=== PATIENT | male | born 1965 | race African-American/Black ===

== ENCOUNTER 2016-07-26 12:47 | Inpatient (IN) | payer OTHER ==
[2016-07-26 15:09] VITALS: BMI 23.7
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
[2016-07-26] MEDS ORDERED: NICOTINE POLACRILEX 4 MG GUM BC PRN (17:19)
[2016-07-26] MEDS ORDERED: hydrOXYzine PAMOATE 50 MG CAPSULE (FP) PO PRN (17:19)
[2016-07-26] MEDS ORDERED: MAGNESIUM CITRATE 300 ML BOTTLE PO PRN (17:19)
[2016-07-26] MEDS ORDERED: MAGNESIUM HYDROX 2400MG/30ML ORAL SUSPENSION 30 ML CUP PO PRN (17:19)
[2016-07-26] MEDS ORDERED: LOPERAMIDE HCL 2 MG CAPSULE PO PRN (17:19)
[2016-07-26] MEDS ORDERED: PNEUMOC 13-VAL CONJ-DIP CRM/PF 0.5 ML DISP.SYRIN IM ONE (20:30)
[2016-07-26] MEDS: GABAPENTIN 300 MG CAPSULE (FP) PO SCH (22:43)
[2016-07-26] MEDS: CYCLOBENZAPRINE HCL 10 MG TABLET (FP) PO SCH (22:43)
[2016-07-26] MEDS: THIAMINE HCL 100 MG TABLET (FP) PO SCH (22:44)
[2016-07-26] MEDS: RANITIDINE HCL 150 MG TABLET (FP) PO SCH (22:44)
[2016-07-26 23:20] LABS: URINE APPEARANCE CLEAR; URINE BILIRUBIN NEGATIVE (NEGATIVE); URINE BLOOD NEGATIVE (NEGATIVE); URINE COLOR STRAW; URINE GLUCOSE (UA) NEGATIVE (NEGATIVE); URINE KETONE NEGATIVE (NEGATIVE); URINE LEUK ESTERASE NEGATIVE (NEGATIVE); URINE NITRITE NEGATIVE (NEGATIVE); URINE PROTEIN NEGATIVE (NEGATIVE); URINE UROBILINOGEN NEGATIVE E.U./dl (0.2-1.0)
[2016-07-27] MEDS: GABAPENTIN 300 MG CAPSULE (FP) PO SCH ×3 (06:38→21:21)
[2016-07-27] MEDS ORDERED: PNEUMOC 13-VAL CONJ-DIP CRM/PF 0.5 ML DISP.SYRIN IM ONE (10:00)
[2016-07-27 10:09] LABS: MCH 30.4 pg (25.7-33.7); MCHC 33.4 g/dl (32.0-35.9); MEAN CELL VOLUME 90.8 fl (80-96); MEAN PLT VOLUME 10.1 fl (7.5-11.1); PLATELET COUNT 169 K/MM3 (134-434); RDW 14.2 % (11.9-15.9); WHITE BLOOD COUNT 7.3 K/mm3 (4.0-10.0)
[2016-07-27] MEDS: NICOTINE 21 MG/24 HOURS TOPICAL PATCH TD SCH (10:11)
[2016-07-27] MEDS: PRENATAL VITAMINS W/ FOLIC ACID TABLET (FP) PO SCH (10:11)
[2016-07-27] MEDS: RANITIDINE HCL 150 MG TABLET (FP) PO SCH ×2 (10:11→21:21)
[2016-07-27 10:37] LABS: ALBUMIN 3.7 g/dl (3.4-5.0); ALK PHOS 75 U/L (45-117); ANION GAP 11 (8-16); BILIRUBIN,TOTAL 0.4 mg/dL (0.2-1.0); CALCIUM 8.6 mg/dL (8.5-10.1); CO2 23 mmol/L (21-32); COCKROFT - GAULT 93.23; CREATININE 1.1 mg/dL (0.7-1.3); GLUCOSE,RANDOM 92 mg/dL (74-106); SGOT/AST 51 U/L (15-37); SGPT/ALT 66 U/L (12-78); TOT PROT 6.5 g/dl (6.4-8.2)
[2016-07-27] MEDS ORDERED: PNEUMOCOCCAL 23 VACCINE 0.5 ML VIAL IM ONE (12:00)
[2016-07-27] MEDS: MAG HYDROX/AL HYDROX/SIMETH 30 ML UNIT-DOSE CUP PO PRN (13:32)
--- NOTE | 2016-07-27 16:11 | EKG ---
Test Reason : Blood Pressure : / mmHG Vent. Rate : 053 BPM Atrial Rate : 053 BPM P-R Int : 166 ms QRS Dur : 098 ms QT Int : 454 ms P-R-T Axes : 075 069 066 degrees QTc Int : 426 ms SINUS BRADYCARDIA INCOMPLETE RIGHT BUNDLE BRANCH BLOCK BORDERLINE ECG WHEN COMPARED WITH ECG OF 26-JUL-2016 20:17, ST NO LONGER DEPRESSED IN ANTERIOR LEADS NONSPECIFIC T WAVE ABNORMALITY NO LONGER EVIDENT IN ANTERIOR LEADS Confirmed by MURIEL GARCIA MD ([id number]) on 07/27/2016 4:11:39 PM Referred By: Confirmed By:MURIEL GARCIA MD
--- NOTE | 2016-07-27 16:16 | EKG ---
Test Reason : Blood Pressure : / mmHG Vent. Rate : 067 BPM Atrial Rate : 067 BPM P-R Int : 164 ms QRS Dur : 096 ms QT Int : 404 ms P-R-T Axes : 066 032 042 degrees QTc Int : 426 ms NORMAL SINUS RHYTHM INCOMPLETE RIGHT BUNDLE BRANCH BLOCK JUNCTIONAL ST DEPRESSION, PROBABLY NORMAL BORDERLINE ECG NO PREVIOUS ECGS AVAILABLE Confirmed by MURIEL GARCIA MD ([id number]) on 07/27/2016 4:15:37 PM Referred By: Confirmed By:MURIEL GARCIA MD
[2016-07-27] MEDS: CYCLOBENZAPRINE HCL 10 MG TABLET (FP) PO SCH (21:20)
[2016-07-27] MEDS: THIAMINE HCL 100 MG TABLET (FP) PO SCH (21:20)
[2016-07-28] MEDS: GABAPENTIN 300 MG CAPSULE (FP) PO SCH ×3 (06:22→21:01)
[2016-07-28] MEDS: ACETAMINOPHEN 325 MG TABLET (FP) PO PRN (06:22)
[2016-07-28] MEDS: PRENATAL VITAMINS W/ FOLIC ACID TABLET (FP) PO SCH (10:11)
[2016-07-28] MEDS: RANITIDINE HCL 150 MG TABLET (FP) PO SCH ×2 (10:11→21:00)
[2016-07-28] MEDS: NICOTINE 21 MG/24 HOURS TOPICAL PATCH TD SCH (10:11)
[2016-07-28] MEDS: THIAMINE HCL 100 MG TABLET (FP) PO SCH (21:00)
[2016-07-28] MEDS: CYCLOBENZAPRINE HCL 10 MG TABLET (FP) PO SCH (21:00)
[2016-07-29] MEDS: GABAPENTIN 300 MG CAPSULE (FP) PO SCH ×3 (06:19→21:31)
[2016-07-29] MEDS: ACETAMINOPHEN 325 MG TABLET (FP) PO PRN (06:19)
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
[2016-07-29] MEDS: PRENATAL VITAMINS W/ FOLIC ACID TABLET (FP) PO SCH (10:21)
[2016-07-29] MEDS: NICOTINE 21 MG/24 HOURS TOPICAL PATCH TD SCH (10:21)
[2016-07-29] MEDS: RANITIDINE HCL 150 MG TABLET (FP) PO SCH ×2 (10:21→21:32)
[2016-07-29] MEDS: THIAMINE HCL 100 MG TABLET (FP) PO SCH (21:31)
[2016-07-29] MEDS: METHYL SALICYLATE/MENTHOL OINT 30 GM TUBE TP SCH (21:31)
[2016-07-29] MEDS: CYCLOBENZAPRINE HCL 10 MG TABLET (FP) PO SCH (21:31)
[2016-07-29] MEDS: diphenhydrAMINE HCL 50 MG CAPSULE PO PRN (21:32)
[2016-07-30] MEDS: GABAPENTIN 300 MG CAPSULE (FP) PO SCH ×3 (06:10→21:19)
[2016-07-30] MEDS ORDERED: PT OWN MED DRAWER 7, Y5N ONE (09:07)
[2016-07-30] MEDS: PRENATAL VITAMINS W/ FOLIC ACID TABLET (FP) PO SCH (10:21)
[2016-07-30] MEDS: NICOTINE 21 MG/24 HOURS TOPICAL PATCH TD SCH (10:21)
[2016-07-30] MEDS: RANITIDINE HCL 150 MG TABLET (FP) PO SCH ×2 (10:21→21:18)
[2016-07-30] MEDS: METHYL SALICYLATE/MENTHOL OINT 30 GM TUBE TP SCH ×2 (10:21→21:20)
[2016-07-30] MEDS: CYCLOBENZAPRINE HCL 10 MG TABLET (FP) PO SCH (21:18)
[2016-07-30] MEDS: THIAMINE HCL 100 MG TABLET (FP) PO SCH (21:18)
[2016-07-31] MEDS: ACETAMINOPHEN 325 MG TABLET (FP) PO PRN (06:02)
[2016-07-31] MEDS: GABAPENTIN 300 MG CAPSULE (FP) PO SCH ×3 (06:03→21:07)
[2016-07-31] MEDS: NICOTINE 21 MG/24 HOURS TOPICAL PATCH TD SCH (10:05)
[2016-07-31] MEDS: RANITIDINE HCL 150 MG TABLET (FP) PO SCH ×2 (10:05→21:06)
[2016-07-31] MEDS: PRENATAL VITAMINS W/ FOLIC ACID TABLET (FP) PO SCH (10:05)
[2016-07-31] MEDS: METHYL SALICYLATE/MENTHOL OINT 30 GM TUBE TP SCH ×2 (10:06→21:07)
[2016-07-31] MEDS: CYCLOBENZAPRINE HCL 10 MG TABLET (FP) PO SCH (21:06)
[2016-07-31] MEDS: THIAMINE HCL 100 MG TABLET (FP) PO SCH (21:06)
[2016-07-31] MEDS: diphenhydrAMINE HCL 50 MG CAPSULE PO PRN (21:07)
[2016-07-31] MEDS ORDERED: PT OWN MED DRAWER 7, Y5N ONE (21:07)
[2016-08-01] MEDS: GABAPENTIN 300 MG CAPSULE (FP) PO SCH ×3 (06:09→21:13)
[2016-08-01] MEDS: NICOTINE 21 MG/24 HOURS TOPICAL PATCH TD SCH (10:06)
[2016-08-01] MEDS: METHYL SALICYLATE/MENTHOL OINT 30 GM TUBE TP SCH ×2 (10:06→22:48)
[2016-08-01] MEDS: RANITIDINE HCL 150 MG TABLET (FP) PO SCH ×2 (10:07→21:12)
[2016-08-01] MEDS: PRENATAL VITAMINS W/ FOLIC ACID TABLET (FP) PO SCH (10:07)
[2016-08-01] MEDS: CYCLOBENZAPRINE HCL 10 MG TABLET (FP) PO SCH (21:12)
[2016-08-01] MEDS: THIAMINE HCL 100 MG TABLET (FP) PO SCH (21:12)
[2016-08-02] MEDS: GABAPENTIN 300 MG CAPSULE (FP) PO SCH ×3 (06:44→21:03)
[2016-08-02] MEDS ORDERED: PT OWN MED DRAWER 7, Y5N ONE (08:51)
[2016-08-02] MEDS: NICOTINE 21 MG/24 HOURS TOPICAL PATCH TD SCH (10:30)
[2016-08-02] MEDS: RANITIDINE HCL 150 MG TABLET (FP) PO SCH ×2 (10:30→21:02)
[2016-08-02] MEDS: PRENATAL VITAMINS W/ FOLIC ACID TABLET (FP) PO SCH (10:30)
[2016-08-02] MEDS: METHYL SALICYLATE/MENTHOL OINT 30 GM TUBE TP SCH ×2 (10:31→22:17)
[2016-08-02] MEDS: CYCLOBENZAPRINE HCL 10 MG TABLET (FP) PO SCH (21:02)
[2016-08-02] MEDS: THIAMINE HCL 100 MG TABLET (FP) PO SCH (21:02)
[2016-08-02] MEDS: diphenhydrAMINE HCL 50 MG CAPSULE PO PRN (21:03)
[2016-08-03] MEDS: GABAPENTIN 300 MG CAPSULE (FP) PO SCH ×3 (06:22→21:43)
[2016-08-03] MEDS: ACETAMINOPHEN 325 MG TABLET (FP) PO PRN (08:42)
[2016-08-03] MEDS: NICOTINE 21 MG/24 HOURS TOPICAL PATCH TD SCH (10:13)
[2016-08-03] MEDS: PRENATAL VITAMINS W/ FOLIC ACID TABLET (FP) PO SCH (10:13)
[2016-08-03] MEDS: RANITIDINE HCL 150 MG TABLET (FP) PO SCH ×2 (10:13→21:43)
[2016-08-03] MEDS: METHYL SALICYLATE/MENTHOL OINT 30 GM TUBE TP SCH ×2 (10:14→21:44)
[2016-08-03] MEDS: THIAMINE HCL 100 MG TABLET (FP) PO SCH (21:43)
[2016-08-03] MEDS: CYCLOBENZAPRINE HCL 10 MG TABLET (FP) PO SCH (21:43)
[2016-08-03] MEDS: diphenhydrAMINE HCL 50 MG CAPSULE PO PRN (21:44)
[2016-08-04] MEDS: GABAPENTIN 300 MG CAPSULE (FP) PO SCH ×3 (06:39→21:21)
[2016-08-04] MEDS: NICOTINE 21 MG/24 HOURS TOPICAL PATCH TD SCH (10:22)
[2016-08-04] MEDS: METHYL SALICYLATE/MENTHOL OINT 30 GM TUBE TP SCH ×2 (10:22→21:21)
[2016-08-04] MEDS: RANITIDINE HCL 150 MG TABLET (FP) PO SCH ×2 (10:22→21:21)
[2016-08-04] MEDS: PRENATAL VITAMINS W/ FOLIC ACID TABLET (FP) PO SCH (10:22)
[2016-08-04] MEDS: THIAMINE HCL 100 MG TABLET (FP) PO SCH (21:21)
[2016-08-04] MEDS: CYCLOBENZAPRINE HCL 10 MG TABLET (FP) PO SCH (21:21)
[2016-08-04] MEDS: diphenhydrAMINE HCL 50 MG CAPSULE PO PRN (21:21)
[2016-08-05] MEDS: GABAPENTIN 300 MG CAPSULE (FP) PO SCH ×3 (06:05→21:13)
[2016-08-05] MEDS: ACETAMINOPHEN 325 MG TABLET (FP) PO PRN (06:19)
[2016-08-05] MEDS: NICOTINE 21 MG/24 HOURS TOPICAL PATCH TD SCH (11:01)
[2016-08-05] MEDS: PRENATAL VITAMINS W/ FOLIC ACID TABLET (FP) PO SCH (11:01)
[2016-08-05] MEDS: METHYL SALICYLATE/MENTHOL OINT 30 GM TUBE TP SCH ×2 (11:02→21:14)
[2016-08-05] MEDS: RANITIDINE HCL 150 MG TABLET (FP) PO SCH ×2 (11:02→21:13)
[2016-08-05] MEDS ORDERED: PT OWN MED DRAWER 7, Y5N ONE ×2 (11:02→20:46)
[2016-08-05] MEDS: CYCLOBENZAPRINE HCL 10 MG TABLET (FP) PO SCH (21:13)
[2016-08-05] MEDS: THIAMINE HCL 100 MG TABLET (FP) PO SCH (21:13)
[2016-08-05] MEDS: diphenhydrAMINE HCL 50 MG CAPSULE PO PRN (21:14)
[2016-08-06] MEDS: GABAPENTIN 300 MG CAPSULE (FP) PO SCH ×3 (06:29→21:08)
[2016-08-06] MEDS: NICOTINE 21 MG/24 HOURS TOPICAL PATCH TD SCH (10:10)
[2016-08-06] MEDS: METHYL SALICYLATE/MENTHOL OINT 30 GM TUBE TP SCH ×2 (10:11→23:38)
[2016-08-06] MEDS: PRENATAL VITAMINS W/ FOLIC ACID TABLET (FP) PO SCH (10:11)
[2016-08-06] MEDS: RANITIDINE HCL 150 MG TABLET (FP) PO SCH ×2 (10:11→21:07)
[2016-08-06] MEDS: CYCLOBENZAPRINE HCL 10 MG TABLET (FP) PO SCH (21:07)
[2016-08-06] MEDS: THIAMINE HCL 100 MG TABLET (FP) PO SCH (21:07)
[2016-08-06] MEDS: diphenhydrAMINE HCL 50 MG CAPSULE PO PRN (21:08)
[2016-08-07] MEDS: GABAPENTIN 300 MG CAPSULE (FP) PO SCH ×3 (06:05→21:12)
[2016-08-07] MEDS: ACETAMINOPHEN 325 MG TABLET (FP) PO PRN ×2 (06:05→14:15)
[2016-08-07] MEDS: PRENATAL VITAMINS W/ FOLIC ACID TABLET (FP) PO SCH (10:24)
[2016-08-07] MEDS: RANITIDINE HCL 150 MG TABLET (FP) PO SCH ×2 (10:24→21:11)
[2016-08-07] MEDS: METHYL SALICYLATE/MENTHOL OINT 30 GM TUBE TP SCH ×2 (10:25→22:33)
[2016-08-07] MEDS: NICOTINE 21 MG/24 HOURS TOPICAL PATCH TD SCH (10:25)
[2016-08-07] MEDS: THIAMINE HCL 100 MG TABLET (FP) PO SCH (21:11)
[2016-08-07] MEDS: CYCLOBENZAPRINE HCL 10 MG TABLET (FP) PO SCH (21:11)
[2016-08-07] MEDS: diphenhydrAMINE HCL 50 MG CAPSULE PO PRN (21:13)
[2016-08-08] MEDS: GABAPENTIN 300 MG CAPSULE (FP) PO SCH ×3 (06:13→21:04)
[2016-08-08] MEDS: ACETAMINOPHEN 325 MG TABLET (FP) PO PRN (06:13)
[2016-08-08] MEDS: RANITIDINE HCL 150 MG TABLET (FP) PO SCH ×2 (10:18→21:04)
[2016-08-08] MEDS: PRENATAL VITAMINS W/ FOLIC ACID TABLET (FP) PO SCH (10:18)
[2016-08-08] MEDS: NICOTINE 21 MG/24 HOURS TOPICAL PATCH TD SCH (10:18)
[2016-08-08] MEDS: METHYL SALICYLATE/MENTHOL OINT 30 GM TUBE TP SCH ×2 (10:19→22:48)
[2016-08-08] MEDS: CYCLOBENZAPRINE HCL 10 MG TABLET (FP) PO SCH (21:04)
[2016-08-08] MEDS: diphenhydrAMINE HCL 50 MG CAPSULE PO PRN (21:04)
[2016-08-08] MEDS: THIAMINE HCL 100 MG TABLET (FP) PO SCH (21:04)
[2016-08-09] MEDS: GABAPENTIN 300 MG CAPSULE (FP) PO SCH ×3 (05:59→21:43)
[2016-08-09] MEDS: PRENATAL VITAMINS W/ FOLIC ACID TABLET (FP) PO SCH (10:15)
[2016-08-09] MEDS: RANITIDINE HCL 150 MG TABLET (FP) PO SCH ×2 (10:16→21:42)
[2016-08-09] MEDS: NICOTINE 21 MG/24 HOURS TOPICAL PATCH TD SCH (10:16)
[2016-08-09] MEDS: METHYL SALICYLATE/MENTHOL OINT 30 GM TUBE TP SCH ×2 (10:16→21:43)
[2016-08-09] MEDS ORDERED: PT OWN MED DRAWER 7, Y5N ONE ×3 (10:34→15:25)
[2016-08-09] MEDS: THIAMINE HCL 100 MG TABLET (FP) PO SCH (21:42)
[2016-08-09] MEDS: CYCLOBENZAPRINE HCL 10 MG TABLET (FP) PO SCH (21:43)
[2016-08-09] MEDS: diphenhydrAMINE HCL 50 MG CAPSULE PO PRN (21:43)
[2016-08-10] MEDS: GABAPENTIN 300 MG CAPSULE (FP) PO SCH ×3 (06:06→21:02)
[2016-08-10] MEDS ORDERED: PT OWN MED DRAWER 7, Y5N ONE (08:54)
[2016-08-10] MEDS: NICOTINE 21 MG/24 HOURS TOPICAL PATCH TD SCH (10:17)
[2016-08-10] MEDS: PRENATAL VITAMINS W/ FOLIC ACID TABLET (FP) PO SCH (10:17)
[2016-08-10] MEDS: RANITIDINE HCL 150 MG TABLET (FP) PO SCH ×2 (10:17→21:02)
[2016-08-10] MEDS: METHYL SALICYLATE/MENTHOL OINT 30 GM TUBE TP SCH ×2 (10:17→21:02)
[2016-08-10] MEDS: diphenhydrAMINE HCL 50 MG CAPSULE PO PRN (21:02)
[2016-08-10] MEDS: THIAMINE HCL 100 MG TABLET (FP) PO SCH (21:02)
[2016-08-10] MEDS: CYCLOBENZAPRINE HCL 10 MG TABLET (FP) PO SCH (21:02)
[2016-08-11] MEDS: ACETAMINOPHEN 325 MG TABLET (FP) PO PRN ×2 (06:18→10:55)
[2016-08-11] MEDS: GABAPENTIN 300 MG CAPSULE (FP) PO SCH ×3 (06:18→21:14)
[2016-08-11] MEDS ORDERED: PT OWN MED DRAWER 7, Y5N ONE (08:43)
[2016-08-11] MEDS: NICOTINE 21 MG/24 HOURS TOPICAL PATCH TD SCH (09:53)
[2016-08-11] MEDS: RANITIDINE HCL 150 MG TABLET (FP) PO SCH ×2 (09:53→21:14)
[2016-08-11] MEDS: PRENATAL VITAMINS W/ FOLIC ACID TABLET (FP) PO SCH (09:53)
[2016-08-11] MEDS: METHYL SALICYLATE/MENTHOL OINT 30 GM TUBE TP SCH ×2 (09:53→21:15)
[2016-08-11] MEDS ORDERED: IBUPROFEN 400 MG TABLET (FP) PO PRN (13:30)
[2016-08-11] MEDS: CYCLOBENZAPRINE HCL 10 MG TABLET (FP) PO SCH ×2 (14:55→21:14)
[2016-08-11] MEDS: LIDOCAINE 5% TOPICAL PATCH TP SCH (14:55)
[2016-08-11] MEDS: THIAMINE HCL 100 MG TABLET (FP) PO SCH (21:14)
[2016-08-11] MEDS: diphenhydrAMINE HCL 50 MG CAPSULE PO PRN (21:15)
[2016-08-12] MEDS: CYCLOBENZAPRINE HCL 10 MG TABLET (FP) PO SCH ×3 (06:06→21:27)
[2016-08-12] MEDS: GABAPENTIN 300 MG CAPSULE (FP) PO SCH ×3 (06:06→21:27)
[2016-08-12] MEDS: RANITIDINE HCL 150 MG TABLET (FP) PO SCH ×2 (10:15→21:27)
[2016-08-12] MEDS: PRENATAL VITAMINS W/ FOLIC ACID TABLET (FP) PO SCH (10:15)
[2016-08-12] MEDS: NICOTINE 21 MG/24 HOURS TOPICAL PATCH TD SCH (10:16)
[2016-08-12] MEDS: METHYL SALICYLATE/MENTHOL OINT 30 GM TUBE TP SCH ×2 (10:16→21:28)
[2016-08-12] MEDS ORDERED: PT OWN MED DRAWER 7, Y5N ONE (10:17)
[2016-08-12] MEDS: LIDOCAINE 5% TOPICAL PATCH TP SCH (10:17)
[2016-08-12] MEDS: diphenhydrAMINE HCL 50 MG CAPSULE PO PRN (21:27)
[2016-08-12] MEDS: THIAMINE HCL 100 MG TABLET (FP) PO SCH (21:27)
[2016-08-13] MEDS: GABAPENTIN 300 MG CAPSULE (FP) PO SCH ×3 (07:25→21:29)
[2016-08-13] MEDS: CYCLOBENZAPRINE HCL 10 MG TABLET (FP) PO SCH ×3 (07:25→21:29)
[2016-08-13] MEDS ORDERED: PT OWN MED DRAWER 7, Y5N ONE (08:55)
[2016-08-13] MEDS: RANITIDINE HCL 150 MG TABLET (FP) PO SCH ×2 (10:10→21:29)
[2016-08-13] MEDS: NICOTINE 21 MG/24 HOURS TOPICAL PATCH TD SCH (10:10)
[2016-08-13] MEDS: PRENATAL VITAMINS W/ FOLIC ACID TABLET (FP) PO SCH (10:10)
[2016-08-13] MEDS: LIDOCAINE 5% TOPICAL PATCH TP SCH (10:10)
[2016-08-13] MEDS: METHYL SALICYLATE/MENTHOL OINT 30 GM TUBE TP SCH ×2 (10:11→23:46)
[2016-08-13] MEDS: THIAMINE HCL 100 MG TABLET (FP) PO SCH (21:29)
[2016-08-13] MEDS: diphenhydrAMINE HCL 50 MG CAPSULE PO PRN (21:29)
[2016-08-14] MEDS: CYCLOBENZAPRINE HCL 10 MG TABLET (FP) PO SCH ×3 (06:03→21:22)
[2016-08-14] MEDS: GABAPENTIN 300 MG CAPSULE (FP) PO SCH ×3 (06:03→21:22)
[2016-08-14] MEDS ORDERED: PT OWN MED DRAWER 7, Y5N ONE (08:56)
[2016-08-14] MEDS: PRENATAL VITAMINS W/ FOLIC ACID TABLET (FP) PO SCH (10:01)
[2016-08-14] MEDS: RANITIDINE HCL 150 MG TABLET (FP) PO SCH ×2 (10:01→21:22)
[2016-08-14] MEDS: LIDOCAINE 5% TOPICAL PATCH TP SCH (10:02)
[2016-08-14] MEDS: METHYL SALICYLATE/MENTHOL OINT 30 GM TUBE TP SCH ×2 (10:03→21:23)
[2016-08-14] MEDS: NICOTINE 21 MG/24 HOURS TOPICAL PATCH TD SCH (10:03)
[2016-08-14] MEDS: MAG HYDROX/AL HYDROX/SIMETH 30 ML UNIT-DOSE CUP PO PRN (19:46)
[2016-08-14] MEDS: diphenhydrAMINE HCL 50 MG CAPSULE PO PRN (21:22)
[2016-08-14] MEDS: THIAMINE HCL 100 MG TABLET (FP) PO SCH (21:22)
[2016-08-15] MEDS: CYCLOBENZAPRINE HCL 10 MG TABLET (FP) PO SCH ×3 (06:05→21:38)
[2016-08-15] MEDS: GABAPENTIN 300 MG CAPSULE (FP) PO SCH ×3 (06:05→21:39)
[2016-08-15] MEDS: METHYL SALICYLATE/MENTHOL OINT 30 GM TUBE TP SCH ×2 (10:15→21:39)
[2016-08-15] MEDS: RANITIDINE HCL 150 MG TABLET (FP) PO SCH ×2 (10:15→21:38)
[2016-08-15] MEDS: PRENATAL VITAMINS W/ FOLIC ACID TABLET (FP) PO SCH (10:15)
[2016-08-15] MEDS: LIDOCAINE 5% TOPICAL PATCH TP SCH (10:15)
[2016-08-15] MEDS: NICOTINE 21 MG/24 HOURS TOPICAL PATCH TD SCH (10:15)
[2016-08-15] MEDS: MAG HYDROX/AL HYDROX/SIMETH 30 ML UNIT-DOSE CUP PO PRN (20:02)
[2016-08-15] MEDS: diphenhydrAMINE HCL 50 MG CAPSULE PO PRN (21:38)
[2016-08-15] MEDS: THIAMINE HCL 100 MG TABLET (FP) PO SCH (21:38)
[2016-08-16] MEDS: CYCLOBENZAPRINE HCL 10 MG TABLET (FP) PO SCH ×3 (06:18→21:16)
[2016-08-16] MEDS: GABAPENTIN 300 MG CAPSULE (FP) PO SCH ×3 (06:18→21:16)
[2016-08-16] MEDS: RANITIDINE HCL 150 MG TABLET (FP) PO SCH ×2 (10:03→21:16)
[2016-08-16] MEDS: PRENATAL VITAMINS W/ FOLIC ACID TABLET (FP) PO SCH (10:03)
[2016-08-16] MEDS: NICOTINE 21 MG/24 HOURS TOPICAL PATCH TD SCH (10:03)
[2016-08-16] MEDS: LIDOCAINE 5% TOPICAL PATCH TP SCH (10:54)
[2016-08-16] MEDS: METHYL SALICYLATE/MENTHOL OINT 30 GM TUBE TP SCH ×2 (10:54→21:17)
[2016-08-16] MEDS: THIAMINE HCL 100 MG TABLET (FP) PO SCH (21:16)
[2016-08-16] MEDS: diphenhydrAMINE HCL 50 MG CAPSULE PO PRN (21:16)
[2016-08-17] MEDS: CYCLOBENZAPRINE HCL 10 MG TABLET (FP) PO SCH ×3 (05:55→21:19)
[2016-08-17] MEDS: GABAPENTIN 300 MG CAPSULE (FP) PO SCH ×3 (05:55→21:19)
[2016-08-17] MEDS ORDERED: PT OWN MED DRAWER 7, Y5N ONE (08:35)
[2016-08-17] MEDS: RANITIDINE HCL 150 MG TABLET (FP) PO SCH ×2 (10:14→21:19)
[2016-08-17] MEDS: METHYL SALICYLATE/MENTHOL OINT 30 GM TUBE TP SCH ×2 (10:14→21:19)
[2016-08-17] MEDS: NICOTINE 21 MG/24 HOURS TOPICAL PATCH TD SCH (10:14)
[2016-08-17] MEDS: PRENATAL VITAMINS W/ FOLIC ACID TABLET (FP) PO SCH (10:14)
[2016-08-17] MEDS: LIDOCAINE 5% TOPICAL PATCH TP SCH (10:15)
[2016-08-17] MEDS: diphenhydrAMINE HCL 50 MG CAPSULE PO PRN (21:19)
[2016-08-17] MEDS: THIAMINE HCL 100 MG TABLET (FP) PO SCH (21:19)
[2016-08-18] MEDS: GABAPENTIN 300 MG CAPSULE (FP) PO SCH ×3 (06:04→21:25)
[2016-08-18] MEDS: CYCLOBENZAPRINE HCL 10 MG TABLET (FP) PO SCH ×3 (06:04→21:24)
[2016-08-18] MEDS: ACETAMINOPHEN 325 MG TABLET (FP) PO PRN (06:04)
[2016-08-18] MEDS ORDERED: PT OWN MED DRAWER 7, Y5N ONE (08:40)
[2016-08-18] MEDS: METHYL SALICYLATE/MENTHOL OINT 30 GM TUBE TP SCH ×2 (10:18→21:25)
[2016-08-18] MEDS: RANITIDINE HCL 150 MG TABLET (FP) PO SCH ×2 (10:18→21:24)
[2016-08-18] MEDS: PRENATAL VITAMINS W/ FOLIC ACID TABLET (FP) PO SCH (10:18)
[2016-08-18] MEDS: NICOTINE 21 MG/24 HOURS TOPICAL PATCH TD SCH (10:18)
[2016-08-18] MEDS: LIDOCAINE 5% TOPICAL PATCH TP SCH (10:19)
[2016-08-18] MEDS: diphenhydrAMINE HCL 50 MG CAPSULE PO PRN (21:24)
[2016-08-18] MEDS: THIAMINE HCL 100 MG TABLET (FP) PO SCH (21:24)
[2016-08-19] MEDS: GABAPENTIN 300 MG CAPSULE (FP) PO SCH ×3 (06:26→21:30)
[2016-08-19] MEDS: CYCLOBENZAPRINE HCL 10 MG TABLET (FP) PO SCH ×3 (06:26→21:30)
[2016-08-19] MEDS: RANITIDINE HCL 150 MG TABLET (FP) PO SCH ×2 (09:53→21:30)
[2016-08-19] MEDS: NICOTINE 21 MG/24 HOURS TOPICAL PATCH TD SCH (09:53)
[2016-08-19] MEDS: METHYL SALICYLATE/MENTHOL OINT 30 GM TUBE TP SCH ×2 (09:53→21:31)
[2016-08-19] MEDS: LIDOCAINE 5% TOPICAL PATCH TP SCH (09:53)
[2016-08-19] MEDS: PRENATAL VITAMINS W/ FOLIC ACID TABLET (FP) PO SCH (09:53)
[2016-08-19] MEDS: THIAMINE HCL 100 MG TABLET (FP) PO SCH (21:30)
[2016-08-19] MEDS: diphenhydrAMINE HCL 50 MG CAPSULE PO PRN (21:30)
[2016-08-20] MEDS: MAG HYDROX/AL HYDROX/SIMETH 30 ML UNIT-DOSE CUP PO PRN (01:26)
[2016-08-20] MEDS: CYCLOBENZAPRINE HCL 10 MG TABLET (FP) PO SCH ×3 (06:12→21:28)
[2016-08-20] MEDS: GABAPENTIN 300 MG CAPSULE (FP) PO SCH ×3 (06:12→21:28)
[2016-08-20] MEDS ORDERED: PT OWN MED DRAWER 7, Y5N ONE (08:40)
[2016-08-20] MEDS: PRENATAL VITAMINS W/ FOLIC ACID TABLET (FP) PO SCH (10:17)
[2016-08-20] MEDS: LIDOCAINE 5% TOPICAL PATCH TP SCH (10:18)
[2016-08-20] MEDS: METHYL SALICYLATE/MENTHOL OINT 30 GM TUBE TP SCH ×2 (10:18→21:29)
[2016-08-20] MEDS: RANITIDINE HCL 150 MG TABLET (FP) PO SCH ×2 (10:18→21:28)
[2016-08-20] MEDS: NICOTINE 21 MG/24 HOURS TOPICAL PATCH TD SCH (10:18)
[2016-08-20] MEDS: THIAMINE HCL 100 MG TABLET (FP) PO SCH (21:28)
[2016-08-20] MEDS: diphenhydrAMINE HCL 50 MG CAPSULE PO PRN (21:29)
[2016-08-21] MEDS: GABAPENTIN 300 MG CAPSULE (FP) PO SCH ×3 (06:12→21:51)
[2016-08-21] MEDS: CYCLOBENZAPRINE HCL 10 MG TABLET (FP) PO SCH ×3 (06:12→21:50)
[2016-08-21] MEDS: PRENATAL VITAMINS W/ FOLIC ACID TABLET (FP) PO SCH (09:57)
[2016-08-21] MEDS: METHYL SALICYLATE/MENTHOL OINT 30 GM TUBE TP SCH ×2 (09:58→23:23)
[2016-08-21] MEDS: LIDOCAINE 5% TOPICAL PATCH TP SCH (09:58)
[2016-08-21] MEDS: RANITIDINE HCL 150 MG TABLET (FP) PO SCH ×2 (09:58→21:50)
[2016-08-21] MEDS: NICOTINE 21 MG/24 HOURS TOPICAL PATCH TD SCH (09:58)
[2016-08-21] MEDS: diphenhydrAMINE HCL 50 MG CAPSULE PO PRN (21:50)
[2016-08-21] MEDS: THIAMINE HCL 100 MG TABLET (FP) PO SCH (21:50)
[2016-08-22] MEDS: CYCLOBENZAPRINE HCL 10 MG TABLET (FP) PO SCH ×3 (06:37→21:47)
[2016-08-22] MEDS: guaiFENesin/D-METHORPHAN HB 10 ML UNIT-DOSE CUPS PO PRN ×3 (06:37→21:48)
[2016-08-22] MEDS: GABAPENTIN 300 MG CAPSULE (FP) PO SCH ×3 (06:37→21:48)
[2016-08-22] MEDS: MENTHOL/PHENOL 1 EACH UD MM PRN (06:38)
[2016-08-22] MEDS: P-EPHED 60MG/TRIPROLIDI 2.5MG TABLET PO PRN ×2 (06:38→14:28)
[2016-08-22] MEDS: NICOTINE 21 MG/24 HOURS TOPICAL PATCH TD SCH (10:05)
[2016-08-22] MEDS: RANITIDINE HCL 150 MG TABLET (FP) PO SCH ×2 (10:05→21:47)
[2016-08-22] MEDS: LIDOCAINE 5% TOPICAL PATCH TP SCH (10:05)
[2016-08-22] MEDS: METHYL SALICYLATE/MENTHOL OINT 30 GM TUBE TP SCH ×2 (10:05→22:51)
[2016-08-22] MEDS: PRENATAL VITAMINS W/ FOLIC ACID TABLET (FP) PO SCH (10:05)
--- NOTE | 2016-08-22 11:28 | PN ---
Psychiatric Progress Note Vital Signs: Vital Signs Period Temp Pulse Resp BP Sys/Mar Pulse Ox Last 24 Hr 97.9 F 89 18-18 135/82 Date of Session: 08/22/16 Chief Complaint:: Discharge Note HPI: Patient addressing Alcohol and Opoid Dependence comorbid with Nicotine Dependence, Substance-Induced Anxiety Disorder and Substance-Induced Sleep Disorder ROS: GERD Current Medications: Active Medications Generic Name Dose Route Start Last Admin Trade Name Freq PRN Reason Stop Dose Admin Acetaminophen 650 mg 07/26/16 17:19 08/18/16 06:04 Tylenol - PO 650 mg Q4H PRN Administration PAIN Al Hydroxide/Mg Hydroxide 30 ml 07/26/16 17:19 08/20/16 01:26 Mylanta Oral Suspension - PO 30 ml Q6H PRN Administration DYSPEPSIA Cyclobenzaprine HCl 10 mg 08/11/16 14:00 08/22/16 06:37 Flexeril - PO 10 mg TID KATHLEEN Administration Diphenhydramine HCl 50 mg 07/26/16 17:19 08/21/16 21:50 Benadryl - PO 50 mg HSMR1 PRN Administration INSOMNIA Eucalyptus/Menthol/Phenol/Sorbitol 1 each 07/26/16 17:19 08/22/16 06:38 Cepastat Lozenge - MM 1 each Q4H PRN Administration SORE THROAT Gabapentin 300 mg 07/26/16 22:00 08/22/16 06:37 Neurontin - PO 300 mg TID KATHLEEN Administration Guaifenesin 10 ml 07/26/16 17:19 08/22/16 06:37 Robitussin Dm - PO 10 ml Q6H PRN Administration COUGH Hydroxyzine Pamoate 50 mg 07/26/16 17:19 Vistaril - PO Q4H PRN AGITATION Ibuprofen 800 mg 08/11/16 13:30 08/19/16 06:29 Motrin - PO 800 mg Q6H PRN Administration PAIN OR FEVER Lidocaine 1 patch 08/11/16 13:30 08/22/16 10:05 Lidoderm Patch - TP Not Given DAILY KATHLEEN Loperamide HCl 4 mg 07/26/16 17:19 07/31/16 07:42 Imodium - PO 4 mg Q6H PRN Administration DIARRHEA Magnesium Citrate 300 ml 07/26/16 17:19 Citroma - PO Q48H PRN CONSTIPATION Magnesium Hydroxide 30 ml 07/26/16 17:19 Milk Of Magnesia - PO DAILY PRN CONSTIPATION Methyl Salicylate 1 applic 07/29/16 22:00 08/22/16 10:05 Henok-Loyola - TP Not Given BID KATHLEEN Nicotine 21 mg 07/27/16 10:00 08/22/16 10:05 Nicoderm Patch - TD 21 mg DAILY KATHLEEN Administration Nicotine Polacrilex 4 mg 07/26/16 17:19 Nicorette Gum - BC Q2H PRN NICOTINE REPLACEMENT RX Multivit/Folic Acid/Iron 1 tab 07/27/16 10:00 08/22/16 10:05 Vitamins ([facility]) - PO 1 tab DAILY KATHLEEN Administration Pseudoephedrine/Triprolidine 1 combo 07/26/16 17:19 08/22/16 06:38 Actifed - PO 1 combo TID PRN Administration NASAL CONGESTION Ranitidine HCl 150 mg 07/26/16 22:00 08/22/16 10:05 Zantac - PO 150 mg BID KATHLEEN Administration Thiamine HCl 100 mg 07/26/16 22:00 08/21/16 21:50 Vitamin B1 - PO 100 mg HS KATHLEEN Administration Current Side Effect: No Lab tests ordered: Yes Lab tests reviewed: Yes Provider note:: Patient will complete this program on 08/23/16. He has met his treatment goals and will continue to address his issues in outpatient treatment at [facility]. 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 He is stable for discharge on 08/23/16 Total face to face time:: 35 Mental Status Exam - Mental Status Exam Alert and Oriented to: Time, Place, Person Cognitive Function: Fair Patient Appearance: Well Groomed Mood: Hopeful, Euthymic Affect: Appropriate Patient Behavior: Cooperative Speech Pattern: Clear Voice Loudness: Normal, Limited Variation Thought Disorder: Not Present Hallucinations: Denies Suicidal Ideation: Denies Homicidal Ideation: Denies Insight/Judgement: Fair Sleep: Fair Appetite: Good Muscle strength/Tone: Normal Gait/Station: Antalgic (cane for ambulation) Psychiatric Treatment Plan - Problem List (1) Alcohol dependence with uncomplicated withdrawal Current Visit: Yes (2) Opioid dependence with withdrawal Current Visit: Yes (3) Nicotine dependence Current Visit: Yes Qualifiers: Nicotine product type: cigarettes Substance use status: in withdrawal Qualified Code(s): F17.213 - Nicotine dependence, cigarettes, with withdrawal (4) Substance-induced anxiety disorder Current Visit: Yes (5) Substance-induced sleep disorder Current Visit: Yes (6) GERD (gastroesophageal reflux disease) Current Visit: Yes Qualifiers: Esophagitis presence: without esophagitis Qualified Code(s): K21.9 - Gastro-esophageal reflux disease without esophagitis (7) Status post right knee surgery Current Visit: Yes Comment: CANE FOR AMBULATION Initial treatment plan: Patient will be discharged tomorrow and referred to [facility] for outpatient treatment
[2016-08-22] MEDS: DOCUSATE SODIUM 100 MG CAPSULE (FP) PO SCH ×2 (14:27→21:49)
[2016-08-22] MEDS: ACETAMINOPHEN 325 MG TABLET (FP) PO PRN (17:14)
[2016-08-22] MEDS: THIAMINE HCL 100 MG TABLET (FP) PO SCH (21:47)
[2016-08-22] MEDS: diphenhydrAMINE HCL 50 MG CAPSULE PO PRN (21:48)
[2016-08-23] MEDS: GABAPENTIN 300 MG CAPSULE (FP) PO SCH (05:57)
[2016-08-23] MEDS: DOCUSATE SODIUM 100 MG CAPSULE (FP) PO SCH (05:57)
[2016-08-23] MEDS: CYCLOBENZAPRINE HCL 10 MG TABLET (FP) PO SCH (05:57)
[2016-08-23] MEDS: MENTHOL/PHENOL 1 EACH UD MM PRN (05:57)
[2016-08-23] MEDS: guaiFENesin/D-METHORPHAN HB 10 ML UNIT-DOSE CUPS PO PRN (05:57)
[2016-08-23] MEDS: P-EPHED 60MG/TRIPROLIDI 2.5MG TABLET PO PRN (05:57)
[2016-08-23 06:47] VITALS: BP 122/78; PULSE 92; TEMP 97
[2016-08-23] MEDS: RANITIDINE HCL 150 MG TABLET (FP) PO SCH (09:17)
[2016-08-23] MEDS: PRENATAL VITAMINS W/ FOLIC ACID TABLET (FP) PO SCH (09:17)
[2016-08-23] MEDS: LIDOCAINE 5% TOPICAL PATCH TP SCH (09:19)
[2016-08-23] MEDS: METHYL SALICYLATE/MENTHOL OINT 30 GM TUBE TP SCH (09:19)
[2016-08-23] MEDS: NICOTINE 21 MG/24 HOURS TOPICAL PATCH TD SCH (09:19)
== END 2016-08-23 09:30 | disposition home or self-care (01) | DRG 772 ==
LOC: YASAS 12:47 → Y3W 18:18
PROVIDERS: ADMIT Psychiatry & Neurology Psychiatry; ATTEND Psychiatry & Neurology Psychiatry
PROC: HZ42ZZZ Group Counseling for Substance Abuse Treatment, Cognitive-Behavioral (ICD-10-PCS; principal; 2016-08-23)
DX: F11.23 Opioid dependence with withdrawal (principal); F10.230 Alcohol dependence with withdrawal, uncomplicated; F19.24 Other psychoactive substance dependence with psychoactive substance-induced mood disorder; F19.282 Other psychoactive substance dependence with psychoactive substance-induced sleep disorder; F10.282 Alcohol dependence with alcohol-induced sleep disorder; K21.9 Gastro-esophageal reflux disease without esophagitis; R26.2 Difficulty in walking, not elsewhere classified; R63.4 Abnormal weight loss; Z68.29 Body mass index [BMI] 29.0-29.9, adult
CPT/HCPCS: 36415; 80053; 81003; 85027; 86593; 93005; 93010

== ENCOUNTER 2017-02-27 11:07 | Inpatient (IN) | payer OTHER ==
[2017-02-27 14:38] VITALS: BMI 19.8
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
[2017-02-27] MEDS ORDERED: LOPERAMIDE HCL 2 MG CAPSULE PO PRN (14:52)
[2017-02-27] MEDS ORDERED: MAG HYDROX/AL HYDROX/SIMETH 30 ML UNIT-DOSE CUP PO PRN (14:52)
[2017-02-27] MEDS ORDERED: MAGNESIUM CITRATE 300 ML BOTTLE PO PRN (14:52)
[2017-02-27] MEDS ORDERED: P-EPHED 60MG/TRIPROLIDI 2.5MG TABLET PO PRN (14:52)
[2017-02-27] MEDS ORDERED: MAGNESIUM HYDROX 2400MG/30ML ORAL SUSPENSION 30 ML CUP PO PRN (14:52)
[2017-02-27] MEDS ORDERED: guaiFENesin/D-METHORPHAN HB 10 ML UNIT-DOSE CUPS PO PRN (14:52)
[2017-02-27] MEDS ORDERED: hydrOXYzine PAMOATE 25 MG CAPSULE (FP) PO PRN (14:52)
[2017-02-27 16:42] LABS: MCH 30.5 pg (25.7-33.7); MCHC 33.4 g/dl (32.0-35.9); MEAN CELL VOLUME 91.4 fl (80-96); RDW 14.3 % (11.9-15.9); WHITE BLOOD COUNT 7.2 K/mm3 (4.0-10.0)
[2017-02-27 16:57] LABS: ALBUMIN 4.2 g/dl (3.4-5.0); ALK PHOS 61 U/L (45-117); ANION GAP 9 (8-16); BILIRUBIN,TOTAL 0.3 mg/dL (0.2-1.0); CALCIUM 9.4 mg/dL (8.5-10.1); CO2 27 mmol/L (21-32); CREATININE 1.2 mg/dL (0.7-1.3); GLUCOSE,RANDOM 83 mg/dL (74-106); SGOT/AST 21 U/L (15-37); SGPT/ALT 28 U/L (12-78); TOT PROT 7.1 g/dl (6.4-8.2)
--- NOTE | 2017-02-27 17:34 | PN ---
[facility] Progress Note Note: RECEIVED NURSE CALL THAT THE PATIENT NEEDS PPD
[2017-02-27 17:49] LABS: PLATELET COUNT 177 K/MM3 (134-434); PLATELET ESTIMATE ADEQUATE (NORMAL)
[2017-02-27] MEDS: GABAPENTIN 300 MG CAPSULE (FP) PO SCH ×2 (18:06→21:45)
[2017-02-27] MEDS: NICOTINE 21 MG/24 HOURS TOPICAL PATCH TD SCH (18:07)
[2017-02-27] MEDS: IBUPROFEN 400 MG TABLET (FP) PO PRN (18:15)
--- NOTE | 2017-02-27 19:41 | PN ---
[facility] Progress Note Note: RECEIVED NURSE CALL THAT THE PATIENT DOES NOT NEED PPD
[2017-02-27] MEDS: CYCLOBENZAPRINE HCL 10 MG TABLET (FP) PO SCH (21:45)
[2017-02-27] MEDS: THIAMINE HCL 100 MG TABLET (FP) PO SCH (21:45)
[2017-02-27 22:08] LABS: URINE APPEARANCE CLEAR; URINE BILIRUBIN NEGATIVE (NEGATIVE); URINE BLOOD NEGATIVE (NEGATIVE); URINE COLOR YELLOW; URINE GLUCOSE (UA) NEGATIVE (NEGATIVE); URINE KETONE NEGATIVE (NEGATIVE); URINE NITRITE NEGATIVE (NEGATIVE); URINE PROTEIN NEGATIVE (NEGATIVE); URINE UROBILINOGEN NEGATIVE mg/dL (0.2-1.0)
[2017-02-28] MEDS: IBUPROFEN 400 MG TABLET (FP) PO PRN (06:15)
[2017-02-28] MEDS: GABAPENTIN 300 MG CAPSULE (FP) PO SCH ×3 (06:15→21:56)
[2017-02-28] MEDS: NICOTINE 21 MG/24 HOURS TOPICAL PATCH TD SCH (10:36)
[2017-02-28] MEDS: PRENATAL VITAMINS W/ FOLIC ACID TABLET (FP) PO SCH (10:37)
[2017-02-28 11:16] LABS: URINE LEUK ESTERASE Negative (NEGATIVE)
--- NOTE | 2017-02-28 14:31 | PN ---
[facility] Progress Note Note: C/O withdrawal sx from heroin Vital Signs - 8 hr 02/28/17 07:10 Temperature 98.6 F Pulse Rate 86 Respiratory 18 Rate Blood Pressure 112/76 Laboratory Tests 02/27/17 02/27/17 02/27/17 15:00 15:00 15:00 WBC 7.2 RBC 4.25 Hgb 13.0 Hct 38.8 MCV 91.4 MCH 30.5 MCHC 33.4 RDW 14.3 Plt Count 177 MPV 10.0 Platelet Estimate Adequate Sodium 141 Potassium 4.2 Chloride 105 Carbon Dioxide 27 Anion Gap 9 BUN 9 Creatinine 1.2 Creat Clearance w eGFR > 60 Random Glucose 83 Calcium 9.4 Total Bilirubin 0.3 D AST 21 D ALT 28 D Alkaline Phosphatase 61 Total Protein 7.1 Albumin 4.2 Urine Color Urine Appearance Urine pH Ur Specific [place] Urine Protein Urine Glucose (UA) Urine Ketones Urine Blood Urine Nitrite Urine Bilirubin Urine Urobilinogen Ur Leukocyte Esterase RPR Titer Nonreactive 02/27/17 21:50 WBC RBC Hgb Hct MCV MCH MCHC RDW Plt Count MPV Platelet Estimate Sodium Potassium Chloride Carbon Dioxide Anion Gap BUN Creatinine Creat Clearance w eGFR Random Glucose Calcium Total Bilirubin AST ALT Alkaline Phosphatase Total Protein Albumin Urine Color Yellow Urine Appearance Clear Urine pH 6.0 Ur Specific [place] 1.013 Urine Protein Negative Urine Glucose (UA) Negative Urine Ketones Negative Urine Blood Negative Urine Nitrite Negative Urine Bilirubin Negative Urine Urobilinogen Negative Ur Leukocyte Esterase Negative RPR Titer labs noted P: Clonidine 0.1mg bid
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
[2017-02-28] MEDS: cloNIDine HCL 0.1 MG TABLET PO SCH ×2 (15:34→21:56)
[2017-02-28] MEDS: diphenhydrAMINE HCL 50 MG CAPSULE PO PRN (21:56)
[2017-02-28] MEDS: CYCLOBENZAPRINE HCL 10 MG TABLET (FP) PO SCH (21:56)
[2017-02-28] MEDS: THIAMINE HCL 100 MG TABLET (FP) PO SCH (21:56)
[2017-03-01] MEDS: GABAPENTIN 300 MG CAPSULE (FP) PO SCH ×3 (07:01→21:40)
[2017-03-01] MEDS: PRENATAL VITAMINS W/ FOLIC ACID TABLET (FP) PO SCH (10:20)
[2017-03-01] MEDS: NICOTINE 21 MG/24 HOURS TOPICAL PATCH TD SCH (10:20)
[2017-03-01] MEDS: cloNIDine HCL 0.1 MG TABLET PO SCH ×2 (10:20→21:40)
[2017-03-01] MEDS: IBUPROFEN 400 MG TABLET (FP) PO PRN (14:35)
[2017-03-01] MEDS: MENTHOL/PHENOL 1 EACH UD MM PRN (14:36)
--- NOTE | 2017-03-01 16:43 | EKG ---
Test Reason : Blood Pressure : / mmHG Vent. Rate : 078 BPM Atrial Rate : 078 BPM P-R Int : 154 ms QRS Dur : 098 ms QT Int : 404 ms P-R-T Axes : 062 038 027 degrees QTc Int : 460 ms NORMAL SINUS RHYTHM U WAVES RECORDED WHEN COMPARED WITH ECG OF 27-JUL-2016 06:19, INCOMPLETE RIGHT BUNDLE BRANCH BLOCK IS NO LONGER PRESENT CLINICAL CORRELATION IS RECOMMENDED Confirmed by RADHA MARY MD ([id number]) on 03/01/2017 4:43:29 PM Referred By: Confirmed By:RADHA MARY MD
[2017-03-01] MEDS: diphenhydrAMINE HCL 50 MG CAPSULE PO PRN (21:40)
[2017-03-01] MEDS: CYCLOBENZAPRINE HCL 10 MG TABLET (FP) PO SCH (21:40)
[2017-03-01] MEDS: THIAMINE HCL 100 MG TABLET (FP) PO SCH (21:40)
[2017-03-02] MEDS: diphenhydrAMINE HCL 50 MG CAPSULE PO PRN ×2 (01:34→21:52)
[2017-03-02] MEDS: IBUPROFEN 400 MG TABLET (FP) PO PRN ×2 (05:20→21:52)
[2017-03-02] MEDS: MENTHOL/PHENOL 1 EACH UD MM PRN ×3 (05:20→17:53)
[2017-03-02] MEDS: GABAPENTIN 300 MG CAPSULE (FP) PO SCH ×3 (06:39→21:52)
[2017-03-02] MEDS: cloNIDine HCL 0.1 MG TABLET PO SCH ×2 (10:31→21:52)
[2017-03-02] MEDS: PRENATAL VITAMINS W/ FOLIC ACID TABLET (FP) PO SCH (10:31)
[2017-03-02] MEDS: NICOTINE 21 MG/24 HOURS TOPICAL PATCH TD SCH (10:31)
[2017-03-02] MEDS: ACETAMINOPHEN 325 MG TABLET (FP) PO PRN (17:51)
[2017-03-02] MEDS: THIAMINE HCL 100 MG TABLET (FP) PO SCH (21:51)
[2017-03-02] MEDS: CYCLOBENZAPRINE HCL 10 MG TABLET (FP) PO SCH (21:52)
[2017-03-03] MEDS: diphenhydrAMINE HCL 50 MG CAPSULE PO PRN (01:45)
[2017-03-03] MEDS: GABAPENTIN 300 MG CAPSULE (FP) PO SCH ×3 (06:17→21:44)
[2017-03-03] MEDS: MENTHOL/PHENOL 1 EACH UD MM PRN (06:46)
[2017-03-03] MEDS: NICOTINE 21 MG/24 HOURS TOPICAL PATCH TD SCH (10:09)
[2017-03-03] MEDS: cloNIDine HCL 0.1 MG TABLET PO SCH ×2 (10:09→21:45)
[2017-03-03] MEDS: PRENATAL VITAMINS W/ FOLIC ACID TABLET (FP) PO SCH (10:09)
--- NOTE | 2017-03-03 10:52 | PN ---
[facility] Progress Note (SOAP) Subjective: c/o sore throat, congestion, hernández, cold symptoms, unrelieved by lozenges Objective: 03/03/17 10:50 Vital Signs - 24 hr 03/02/17 03/03/17 22:16 06:00 Temperature 96.4 F L Pulse Rate 94 H 84 Respiratory 18 Rate Blood Pressure 151/91 145/70 afeb, A and O x3, NAD Laboratory Tests 02/27/17 02/27/17 02/27/17 15:00 15:00 15:00 WBC 7.2 RBC 4.25 Hgb 13.0 Hct 38.8 MCV 91.4 MCH 30.5 MCHC 33.4 RDW 14.3 Plt Count 177 MPV 10.0 Platelet Estimate Adequate Sodium 141 Potassium 4.2 Chloride 105 Carbon Dioxide 27 Anion Gap 9 BUN 9 Creatinine 1.2 Creat Clearance w eGFR > 60 Random Glucose 83 Calcium 9.4 Total Bilirubin 0.3 D AST 21 D ALT 28 D Alkaline Phosphatase 61 Total Protein 7.1 Albumin 4.2 Urine Color Urine Appearance Urine pH Ur Specific [place] Urine Protein Urine Glucose (UA) Urine Ketones Urine Blood Urine Nitrite Urine Bilirubin Urine Urobilinogen Ur Leukocyte Esterase RPR Titer Nonreactive 02/27/17 21:50 WBC RBC Hgb Hct MCV MCH MCHC RDW Plt Count MPV Platelet Estimate Sodium Potassium Chloride Carbon Dioxide Anion Gap BUN Creatinine Creat Clearance w eGFR Random Glucose Calcium Total Bilirubin AST ALT Alkaline Phosphatase Total Protein Albumin Urine Color Yellow Urine Appearance Clear Urine pH 6.0 Ur Specific [place] 1.013 Urine Protein Negative Urine Glucose (UA) Negative Urine Ketones Negative Urine Blood Negative Urine Nitrite Negative Urine Bilirubin Negative Urine Urobilinogen Negative Ur Leukocyte Esterase Negative RPR Titer congestion, no LN Assessment: 03/03/17 10:50 viral syndrome Plan: fluids, naprosyn, magic mouthwash, symptomatic treatment for opioid withdrawl last used 02/22
[2017-03-03] MEDS ORDERED: GABAPENTIN 300 MG CAPSULE (FP) PO ONE (10:55)
[2017-03-03] MEDS: NAPROXEN 500 MG TABLET (FP) PO SCH ×2 (11:19→21:44)
[2017-03-03] MEDS: PANTOPRAZOLE 40 MG TABLET (FP) PO SCH (11:19)
[2017-03-03] MEDS: MAG HYDROX/ALH/SMC/DPHA/LIDO 240 ML MOUTHWASH MM SCH ×3 (11:59→18:18)
--- NOTE | 2017-03-03 14:42 | PN ---
Psychiatric Progress Note Vital Signs: Vital Signs Period Temp Pulse Resp BP Sys/Mar Pulse Ox Last 24 Hr 96.4 F 84-94 18 127-151/70-91 Date of Session: 03/03/17 Chief Complaint:: progress update. HPI: Patient is addressing alcohol, opioid , nicotine dependence comorbid substance induced sleep and anxiety disorder. ROS: WNL Current Medications: Active Medications Generic Name Dose Route Start Last Admin Trade Name Freq PRN Reason Stop Dose Admin Acetaminophen 650 mg 02/27/17 14:52 03/02/17 17:51 Tylenol - PO 650 mg Q4H PRN Administration PAIN Al Hydroxide/Mg Hydroxide 30 ml 02/27/17 14:52 Mylanta Oral Suspension - PO Q6H PRN DYSPEPSIA Clonidine 0.1 mg 02/28/17 15:08 03/03/17 10:09 Catapres - PO 0.1 mg BID KATHLEEN Administration Cyclobenzaprine HCl 10 mg 02/27/17 22:00 03/02/17 21:52 Flexeril - PO 10 mg HS KATHLEEN Administration Diphenhydramine HCl 50 mg 02/28/17 14:36 03/03/17 01:45 Benadryl - PO 50 mg HS PRN Administration INSOMNIA Eucalyptus/Menthol/Phenol/Sorbitol 1 each 02/27/17 14:52 03/03/17 06:46 Cepastat Lozenge - MM 1 each Q4H PRN Administration SORE THROAT Gabapentin 600 mg 03/03/17 22:00 Neurontin - PO HS KATHLEEN Gabapentin 300 mg 03/03/17 14:00 Neurontin - PO BID@0600,1400 KATHLEEN Guaifenesin 10 ml 02/27/17 14:52 Robitussin Dm - PO Q6H PRN COUGH Hydroxyzine Pamoate 25 mg 02/27/17 14:52 03/01/17 03:35 Vistaril - PO 25 mg Q4H PRN Administration AGITATION Lidocaine/Aluminum/Magnesium/Simeth 5 ml 03/03/17 11:00 03/03/17 13:02 Magic Mouthwash *Sjr Formula* - MM 5 ml Q6HPO KATHLEEN Administration Loperamide HCl 4 mg 02/27/17 14:52 Imodium - PO Q6H PRN DIARRHEA Magnesium Citrate 300 ml 02/27/17 14:52 Citroma - PO Q48H PRN CONSTIPATION Magnesium Hydroxide 30 ml 02/27/17 14:52 Milk Of Magnesia - PO DAILY PRN CONSTIPATION Naproxen 500 mg 03/03/17 11:00 03/03/17 11:19 Naprosyn - PO 500 mg BID KATHLEEN Administration Nicotine 21 mg 02/27/17 15:36 03/03/17 10:09 Nicoderm Patch - TD 21 mg DAILY KATHLEEN Administration Pantoprazole Sodium 40 mg 03/03/17 11:00 03/03/17 11:19 Protonix - PO 40 mg DAILY KATHLEEN Administration Multivit/Folic Acid/Iron 1 tab 02/28/17 10:00 03/03/17 10:09 Vitamins (Sjr) - PO 1 tab DAILY KATHLEEN Administration Pseudoephedrine/Triprolidine 1 combo 02/27/17 14:52 Actifed - PO TID PRN NASAL CONGESTION Quetiapine Fumarate 25 mg 03/03/17 14:45 Seroquel - PO HS KATHLEEN Thiamine HCl 100 mg 02/27/17 22:00 03/02/17 21:51 Vitamin B1 - PO 100 mg HS KATHLEEN Administration Medication(s) Change(s): add Seroquel 25 mg po hs. Current Side Effect: No Lab tests ordered: No Lab tests reviewed: Yes Provider note:: Patient was seen today, patient having difficult time to adjust to the unit due to withdrawal, he has diffcicult time at nights, states haven't slept for 6 nights and feels irritable easilly aggravated, reports past good response to seroquel, psychoeducation and supportive therapy provided, will add 25 mg , continue to monitor rpogress. Total face to face time:: 25 Mental Status Exam - Mental Status Exam Alert and Oriented to: Time, Place, Person Cognitive Function: Grossly Intact Patient Appearance: Well Groomed Mood: Sad, Anxious, Irritable Affect: Appropriate, Mood Congruent Patient Behavior: Appropriate, Cooperative Speech Pattern: Clear, Appropriate Voice Loudness: Normal Thought Process: Intact, Goal Oriented Thought Disorder: Not Present Hallucinations: Denies Suicidal Ideation: Denies Homicidal Ideation: Denies Insight/Judgement: Fair Sleep: Poorly, Difficulty falling asleep Appetite: Fair Muscle strength/Tone: Normal Gait/Station: Normal Psychiatric Treatment Plan - Problem List (1) Alcohol dependence Current Visit: Yes (2) Opioid dependence Current Visit: Yes (3) Nicotine dependence Current Visit: No Qualifiers: Nicotine product type: cigarettes Substance use status: in withdrawal Qualified Code(s): F17.213 - Nicotine dependence, cigarettes, with withdrawal (4) Substance-induced anxiety disorder Current Visit: No (5) Substance-induced sleep disorder Current Visit: No
[2017-03-03] MEDS: QUEtiapine FUMARATE 25 MG TABLET (FP) PO SCH (21:45)
[2017-03-03] MEDS: CYCLOBENZAPRINE HCL 10 MG TABLET (FP) PO SCH (21:45)
[2017-03-03] MEDS: THIAMINE HCL 100 MG TABLET (FP) PO SCH (21:45)
[2017-03-04] MEDS: MAG HYDROX/ALH/SMC/DPHA/LIDO 240 ML MOUTHWASH MM SCH ×4 (00:36→17:03)
[2017-03-04] MEDS: GABAPENTIN 300 MG CAPSULE (FP) PO SCH ×3 (06:07→21:28)
[2017-03-04] MEDS: ACETAMINOPHEN 325 MG TABLET (FP) PO PRN (06:08)
[2017-03-04] MEDS: PRENATAL VITAMINS W/ FOLIC ACID TABLET (FP) PO SCH (10:13)
[2017-03-04] MEDS: PANTOPRAZOLE 40 MG TABLET (FP) PO SCH (10:13)
[2017-03-04] MEDS: cloNIDine HCL 0.1 MG TABLET PO SCH ×2 (10:13→21:27)
[2017-03-04] MEDS: NICOTINE 21 MG/24 HOURS TOPICAL PATCH TD SCH (10:13)
[2017-03-04] MEDS: NAPROXEN 500 MG TABLET (FP) PO SCH ×2 (10:13→21:27)
[2017-03-04] MEDS ORDERED: FLU VACCINE QUAD 60 MCG/0.5 ML (MDV 17-18) IM ONE (12:00)
[2017-03-04] MEDS: THIAMINE HCL 100 MG TABLET (FP) PO SCH (21:27)
[2017-03-04] MEDS: CYCLOBENZAPRINE HCL 10 MG TABLET (FP) PO SCH (21:27)
[2017-03-04] MEDS: QUEtiapine FUMARATE 25 MG TABLET (FP) PO SCH (21:27)
[2017-03-05] MEDS: MAG HYDROX/ALH/SMC/DPHA/LIDO 240 ML MOUTHWASH MM SCH ×4 (00:40→17:03)
[2017-03-05] MEDS: GABAPENTIN 300 MG CAPSULE (FP) PO SCH ×3 (06:15→21:25)
[2017-03-05] MEDS: PRENATAL VITAMINS W/ FOLIC ACID TABLET (FP) PO SCH (10:19)
[2017-03-05] MEDS: NAPROXEN 500 MG TABLET (FP) PO SCH ×2 (10:19→21:25)
[2017-03-05] MEDS: cloNIDine HCL 0.1 MG TABLET PO SCH ×2 (10:19→21:25)
[2017-03-05] MEDS: PANTOPRAZOLE 40 MG TABLET (FP) PO SCH (10:19)
[2017-03-05] MEDS: NICOTINE 21 MG/24 HOURS TOPICAL PATCH TD SCH (10:20)
[2017-03-05] MEDS: CYCLOBENZAPRINE HCL 10 MG TABLET (FP) PO SCH (21:25)
[2017-03-05] MEDS: THIAMINE HCL 100 MG TABLET (FP) PO SCH (21:25)
[2017-03-05] MEDS: QUEtiapine FUMARATE 25 MG TABLET (FP) PO SCH (21:25)
[2017-03-06] MEDS: MAG HYDROX/ALH/SMC/DPHA/LIDO 240 ML MOUTHWASH MM SCH ×4 (00:52→17:18)
[2017-03-06] MEDS: GABAPENTIN 300 MG CAPSULE (FP) PO SCH ×3 (06:10→21:30)
[2017-03-06] MEDS: NAPROXEN 500 MG TABLET (FP) PO SCH ×2 (10:27→21:30)
[2017-03-06] MEDS: cloNIDine HCL 0.1 MG TABLET PO SCH ×2 (10:27→21:30)
[2017-03-06] MEDS: PRENATAL VITAMINS W/ FOLIC ACID TABLET (FP) PO SCH (10:27)
[2017-03-06] MEDS: PANTOPRAZOLE 40 MG TABLET (FP) PO SCH (10:27)
[2017-03-06] MEDS: NICOTINE 21 MG/24 HOURS TOPICAL PATCH TD SCH (10:27)
[2017-03-06] MEDS: QUEtiapine FUMARATE 25 MG TABLET (FP) PO SCH (21:30)
[2017-03-06] MEDS: CYCLOBENZAPRINE HCL 10 MG TABLET (FP) PO SCH (21:30)
[2017-03-06] MEDS: THIAMINE HCL 100 MG TABLET (FP) PO SCH (21:30)
[2017-03-07] MEDS: MAG HYDROX/ALH/SMC/DPHA/LIDO 240 ML MOUTHWASH MM SCH ×4 (00:08→17:40)
[2017-03-07] MEDS: GABAPENTIN 300 MG CAPSULE (FP) PO SCH ×3 (06:34→21:38)
[2017-03-07] MEDS: cloNIDine HCL 0.1 MG TABLET PO SCH ×2 (10:17→21:37)
[2017-03-07] MEDS: PANTOPRAZOLE 40 MG TABLET (FP) PO SCH (10:17)
[2017-03-07] MEDS: NAPROXEN 500 MG TABLET (FP) PO SCH (10:17)
[2017-03-07] MEDS: PRENATAL VITAMINS W/ FOLIC ACID TABLET (FP) PO SCH (10:17)
[2017-03-07] MEDS: NICOTINE 21 MG/24 HOURS TOPICAL PATCH TD SCH (10:18)
[2017-03-07] MEDS: CYCLOBENZAPRINE HCL 10 MG TABLET (FP) PO SCH (21:37)
[2017-03-07] MEDS: THIAMINE HCL 100 MG TABLET (FP) PO SCH (21:37)
[2017-03-07] MEDS: QUEtiapine FUMARATE 25 MG TABLET (FP) PO SCH (21:37)
[2017-03-08] MEDS: MAG HYDROX/ALH/SMC/DPHA/LIDO 240 ML MOUTHWASH MM SCH ×4 (00:14→17:05)
[2017-03-08] MEDS: GABAPENTIN 300 MG CAPSULE (FP) PO SCH ×3 (05:55→21:28)
[2017-03-08] MEDS: PANTOPRAZOLE 40 MG TABLET (FP) PO SCH (10:12)
[2017-03-08] MEDS: cloNIDine HCL 0.1 MG TABLET PO SCH ×2 (10:12→21:28)
[2017-03-08] MEDS: PRENATAL VITAMINS W/ FOLIC ACID TABLET (FP) PO SCH (10:12)
[2017-03-08] MEDS: NICOTINE 21 MG/24 HOURS TOPICAL PATCH TD SCH (10:13)
[2017-03-08] MEDS: ACETAMINOPHEN 325 MG TABLET (FP) PO PRN (14:07)
[2017-03-08] MEDS: CYCLOBENZAPRINE HCL 10 MG TABLET (FP) PO SCH (21:28)
[2017-03-08] MEDS: THIAMINE HCL 100 MG TABLET (FP) PO SCH (21:28)
[2017-03-08] MEDS: QUEtiapine FUMARATE 25 MG TABLET (FP) PO SCH (21:29)
[2017-03-09] MEDS: MAG HYDROX/ALH/SMC/DPHA/LIDO 240 ML MOUTHWASH MM SCH ×5 (00:27→23:35)
[2017-03-09] MEDS: GABAPENTIN 300 MG CAPSULE (FP) PO SCH ×3 (05:55→21:43)
[2017-03-09] MEDS: NICOTINE 21 MG/24 HOURS TOPICAL PATCH TD SCH (10:10)
[2017-03-09] MEDS: cloNIDine HCL 0.1 MG TABLET PO SCH ×2 (10:10→21:43)
[2017-03-09] MEDS: PRENATAL VITAMINS W/ FOLIC ACID TABLET (FP) PO SCH (10:10)
[2017-03-09] MEDS: PANTOPRAZOLE 40 MG TABLET (FP) PO SCH (10:10)
[2017-03-09] MEDS: ACETAMINOPHEN 325 MG TABLET (FP) PO PRN (21:42)
[2017-03-09] MEDS: QUEtiapine FUMARATE 25 MG TABLET (FP) PO SCH (21:43)
[2017-03-09] MEDS: THIAMINE HCL 100 MG TABLET (FP) PO SCH (21:43)
[2017-03-09] MEDS: CYCLOBENZAPRINE HCL 10 MG TABLET (FP) PO SCH (21:43)
[2017-03-10] MEDS: MAG HYDROX/ALH/SMC/DPHA/LIDO 240 ML MOUTHWASH MM SCH ×4 (06:27→23:56)
[2017-03-10] MEDS: GABAPENTIN 300 MG CAPSULE (FP) PO SCH ×3 (06:27→21:55)
[2017-03-10] MEDS: NICOTINE 21 MG/24 HOURS TOPICAL PATCH TD SCH (10:51)
[2017-03-10] MEDS: PRENATAL VITAMINS W/ FOLIC ACID TABLET (FP) PO SCH (10:51)
[2017-03-10] MEDS: PANTOPRAZOLE 40 MG TABLET (FP) PO SCH (10:51)
[2017-03-10] MEDS: cloNIDine HCL 0.1 MG TABLET PO SCH ×2 (10:51→21:55)
[2017-03-10] MEDS: ACETAMINOPHEN 325 MG TABLET (FP) PO PRN (19:04)
[2017-03-10] MEDS: THIAMINE HCL 100 MG TABLET (FP) PO SCH (21:55)
[2017-03-10] MEDS: QUEtiapine FUMARATE 25 MG TABLET (FP) PO SCH (21:55)
[2017-03-10] MEDS: CYCLOBENZAPRINE HCL 10 MG TABLET (FP) PO SCH (21:55)
[2017-03-11] MEDS: GABAPENTIN 300 MG CAPSULE (FP) PO SCH ×3 (06:06→21:24)
[2017-03-11] MEDS: MAG HYDROX/ALH/SMC/DPHA/LIDO 240 ML MOUTHWASH MM SCH ×3 (06:06→17:46)
[2017-03-11] MEDS: ACETAMINOPHEN 325 MG TABLET (FP) PO PRN (06:08)
[2017-03-11] MEDS: cloNIDine HCL 0.1 MG TABLET PO SCH ×2 (10:35→21:23)
[2017-03-11] MEDS: PANTOPRAZOLE 40 MG TABLET (FP) PO SCH (10:35)
[2017-03-11] MEDS: PRENATAL VITAMINS W/ FOLIC ACID TABLET (FP) PO SCH (10:35)
[2017-03-11] MEDS: NICOTINE 21 MG/24 HOURS TOPICAL PATCH TD SCH (10:35)
[2017-03-11] MEDS: CYCLOBENZAPRINE HCL 10 MG TABLET (FP) PO SCH (21:23)
[2017-03-11] MEDS: THIAMINE HCL 100 MG TABLET (FP) PO SCH (21:23)
[2017-03-11] MEDS: QUEtiapine FUMARATE 25 MG TABLET (FP) PO SCH (21:23)
[2017-03-11] MEDS: diphenhydrAMINE HCL 50 MG CAPSULE PO PRN (21:24)
[2017-03-12] MEDS: MAG HYDROX/ALH/SMC/DPHA/LIDO 240 ML MOUTHWASH MM SCH ×4 (00:47→17:38)
[2017-03-12] MEDS: GABAPENTIN 300 MG CAPSULE (FP) PO SCH ×3 (06:28→21:40)
[2017-03-12] MEDS: ACETAMINOPHEN 325 MG TABLET (FP) PO PRN ×2 (06:29→12:18)
[2017-03-12] MEDS: PRENATAL VITAMINS W/ FOLIC ACID TABLET (FP) PO SCH (10:07)
[2017-03-12] MEDS: NICOTINE 21 MG/24 HOURS TOPICAL PATCH TD SCH (10:07)
[2017-03-12] MEDS: PANTOPRAZOLE 40 MG TABLET (FP) PO SCH (10:07)
[2017-03-12] MEDS: cloNIDine HCL 0.1 MG TABLET PO SCH ×2 (10:07→21:40)
[2017-03-12] MEDS: CYCLOBENZAPRINE HCL 10 MG TABLET (FP) PO SCH (21:40)
[2017-03-12] MEDS: diphenhydrAMINE HCL 50 MG CAPSULE PO PRN (21:40)
[2017-03-12] MEDS: QUEtiapine FUMARATE 25 MG TABLET (FP) PO SCH (21:40)
[2017-03-12] MEDS: THIAMINE HCL 100 MG TABLET (FP) PO SCH (21:40)
[2017-03-13] MEDS: MAG HYDROX/ALH/SMC/DPHA/LIDO 240 ML MOUTHWASH MM SCH ×4 (01:25→17:04)
[2017-03-13] MEDS: GABAPENTIN 300 MG CAPSULE (FP) PO SCH ×3 (06:17→21:29)
[2017-03-13] MEDS: PRENATAL VITAMINS W/ FOLIC ACID TABLET (FP) PO SCH (10:09)
[2017-03-13] MEDS: cloNIDine HCL 0.1 MG TABLET PO SCH ×2 (10:09→21:29)
[2017-03-13] MEDS: NICOTINE 21 MG/24 HOURS TOPICAL PATCH TD SCH (10:09)
[2017-03-13] MEDS: PANTOPRAZOLE 40 MG TABLET (FP) PO SCH (10:09)
[2017-03-13] MEDS: diphenhydrAMINE HCL 50 MG CAPSULE PO PRN (21:29)
[2017-03-13] MEDS: CYCLOBENZAPRINE HCL 10 MG TABLET (FP) PO SCH (21:29)
[2017-03-13] MEDS: THIAMINE HCL 100 MG TABLET (FP) PO SCH (21:29)
[2017-03-13] MEDS: QUEtiapine FUMARATE 25 MG TABLET (FP) PO SCH (21:29)
[2017-03-14] MEDS: MAG HYDROX/ALH/SMC/DPHA/LIDO 240 ML MOUTHWASH MM SCH ×5 (00:36→23:36)
[2017-03-14] MEDS: ACETAMINOPHEN 325 MG TABLET (FP) PO PRN (06:22)
[2017-03-14] MEDS: GABAPENTIN 300 MG CAPSULE (FP) PO SCH ×3 (06:22→21:56)
[2017-03-14] MEDS: PRENATAL VITAMINS W/ FOLIC ACID TABLET (FP) PO SCH (10:15)
[2017-03-14] MEDS: PANTOPRAZOLE 40 MG TABLET (FP) PO SCH (10:15)
[2017-03-14] MEDS: cloNIDine HCL 0.1 MG TABLET PO SCH ×2 (10:15→21:56)
[2017-03-14] MEDS: NICOTINE 21 MG/24 HOURS TOPICAL PATCH TD SCH (10:16)
[2017-03-14] MEDS: QUEtiapine FUMARATE 25 MG TABLET (FP) PO SCH (21:56)
[2017-03-14] MEDS: diphenhydrAMINE HCL 50 MG CAPSULE PO PRN (21:56)
[2017-03-14] MEDS: THIAMINE HCL 100 MG TABLET (FP) PO SCH (21:56)
[2017-03-14] MEDS: CYCLOBENZAPRINE HCL 10 MG TABLET (FP) PO SCH (21:56)
[2017-03-15] MEDS: MAG HYDROX/ALH/SMC/DPHA/LIDO 240 ML MOUTHWASH MM SCH ×3 (06:32→17:03)
[2017-03-15] MEDS: GABAPENTIN 300 MG CAPSULE (FP) PO SCH ×3 (06:32→21:37)
[2017-03-15] MEDS: ACETAMINOPHEN 325 MG TABLET (FP) PO PRN (06:32)
[2017-03-15] MEDS: cloNIDine HCL 0.1 MG TABLET PO SCH ×2 (10:41→21:37)
[2017-03-15] MEDS: PANTOPRAZOLE 40 MG TABLET (FP) PO SCH (10:41)
[2017-03-15] MEDS: PRENATAL VITAMINS W/ FOLIC ACID TABLET (FP) PO SCH (10:41)
[2017-03-15] MEDS: NICOTINE 21 MG/24 HOURS TOPICAL PATCH TD SCH (10:42)
[2017-03-15] MEDS: diphenhydrAMINE HCL 50 MG CAPSULE PO PRN (21:36)
[2017-03-15] MEDS: THIAMINE HCL 100 MG TABLET (FP) PO SCH (21:36)
[2017-03-15] MEDS: CYCLOBENZAPRINE HCL 10 MG TABLET (FP) PO SCH (21:36)
[2017-03-15] MEDS: QUEtiapine FUMARATE 25 MG TABLET (FP) PO SCH (21:37)
[2017-03-16] MEDS: MAG HYDROX/ALH/SMC/DPHA/LIDO 240 ML MOUTHWASH MM SCH ×4 (00:49→17:06)
[2017-03-16] MEDS: GABAPENTIN 300 MG CAPSULE (FP) PO SCH ×3 (06:23→21:50)
[2017-03-16] MEDS: ACETAMINOPHEN 325 MG TABLET (FP) PO PRN (06:23)
[2017-03-16] MEDS: PANTOPRAZOLE 40 MG TABLET (FP) PO SCH (10:45)
[2017-03-16] MEDS: PRENATAL VITAMINS W/ FOLIC ACID TABLET (FP) PO SCH (10:45)
[2017-03-16] MEDS: cloNIDine HCL 0.1 MG TABLET PO SCH ×2 (10:45→21:49)
[2017-03-16] MEDS: NICOTINE 21 MG/24 HOURS TOPICAL PATCH TD SCH (10:46)
[2017-03-16] MEDS: QUEtiapine FUMARATE 25 MG TABLET (FP) PO SCH (21:49)
[2017-03-16] MEDS: CYCLOBENZAPRINE HCL 10 MG TABLET (FP) PO SCH (21:49)
[2017-03-16] MEDS: THIAMINE HCL 100 MG TABLET (FP) PO SCH (21:50)
[2017-03-16] MEDS: diphenhydrAMINE HCL 50 MG CAPSULE PO PRN (21:50)
[2017-03-17] MEDS: MAG HYDROX/ALH/SMC/DPHA/LIDO 240 ML MOUTHWASH MM SCH ×2 (00:20→06:41)
[2017-03-17] MEDS: GABAPENTIN 300 MG CAPSULE (FP) PO SCH (06:15)
[2017-03-17] MEDS: ACETAMINOPHEN 325 MG TABLET (FP) PO PRN (06:16)
[2017-03-17 07:27] VITALS: BP 114/74; PULSE 108; TEMP 97.4
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
[2017-03-17] MEDS: PRENATAL VITAMINS W/ FOLIC ACID TABLET (FP) PO SCH (09:54)
[2017-03-17] MEDS: cloNIDine HCL 0.1 MG TABLET PO SCH (09:54)
[2017-03-17] MEDS: PANTOPRAZOLE 40 MG TABLET (FP) PO SCH (09:54)
[2017-03-17] MEDS: NICOTINE 21 MG/24 HOURS TOPICAL PATCH TD SCH (09:55)
== END 2017-03-17 10:10 | disposition home or self-care (01) | DRG 772 ==
LOC: YASAS 11:07 → Y5N 15:15
PROVIDERS: ADMIT Psychiatry & Neurology Psychiatry; ATTEND Psychiatry & Neurology Psychiatry
PROC: HZ42ZZZ Group Counseling for Substance Abuse Treatment, Cognitive-Behavioral (ICD-10-PCS; principal; 2017-02-27)
DX: F11.23 Opioid dependence with withdrawal (principal); F10.20 Alcohol dependence, uncomplicated; F17.210 Nicotine dependence, cigarettes, uncomplicated; F19.280 Other psychoactive substance dependence with psychoactive substance-induced anxiety disorder; F19.282 Other psychoactive substance dependence with psychoactive substance-induced sleep disorder; F41.8 Other specified anxiety disorders; B34.9 Viral infection, unspecified; Z87.898 Personal history of other specified conditions; Z91.5 Personal history of self-harm
CPT/HCPCS: 36415; 80053; 81003; 85027; 86593; 90688; 93005; 93010; G0008

== ENCOUNTER 2017-09-03 14:01 | Inpatient (IN) | payer OTHER ==
[2017-09-03 16:07] VITALS: BMI 21.0
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
[2017-09-03] MEDS ORDERED: LOPERAMIDE HCL 2 MG CAPSULE PO PRN (21:16)
[2017-09-03] MEDS ORDERED: P-EPHED 60MG/TRIPROLIDI 2.5MG TABLET PO PRN (21:16)
[2017-09-03] MEDS ORDERED: MAG HYDROX/AL HYDROX/SIMETH 30 ML UNIT-DOSE CUP PO PRN (21:16)
[2017-09-03] MEDS ORDERED: MAGNESIUM HYDROX 2400MG/30ML ORAL SUSPENSION 30 ML CUP PO PRN (21:16)
[2017-09-03] MEDS ORDERED: guaiFENesin/D-METHORPHAN HB 10 ML UNIT-DOSE CUPS PO PRN (21:16)
[2017-09-03] MEDS ORDERED: MAGNESIUM CITRATE 300 ML BOTTLE PO PRN (21:16)
[2017-09-03] MEDS ORDERED: NICOTINE POLACRILEX 2 MG GUM BC PRN (21:16)
[2017-09-03] MEDS ORDERED: chlordiazePOXIDE HCL 25 MG CAPSULE PO PRN (21:16)
[2017-09-03] MEDS ORDERED: MENTHOL/PHENOL 1 EACH UD MM PRN (21:16)
[2017-09-03] MEDS ORDERED: METHADONE HCL 10 MG TABLET (FOR DETOX USE ONLY) PO ONE ×2 (21:16→23:00)
[2017-09-03] MEDS ORDERED: ACETAMINOPHEN 325 MG TABLET (FP) PO PRN (21:16)
[2017-09-03] MEDS ORDERED: MELATONIN 5 MG TABLETS PO PRN (22:00)
[2017-09-03] MEDS: chlordiazePOXIDE HCL 25 MG CAPSULE PO SCH (22:47)
[2017-09-03] MEDS: THIAMINE HCL 100 MG TABLET (FP) PO SCH (23:15)
[2017-09-03 23:29] LABS: URINE APPEARANCE SLCLOUDY; URINE BILIRUBIN NEGATIVE (<2.0 mg/dL); URINE COLOR YELLOW; URINE GLUCOSE (UA) NEGATIVE (NEGATIVE); URINE KETONE NEGATIVE (NEGATIVE); URINE LEUK ESTERASE NEGATIVE (NEGATIVE); URINE NITRITE NEGATIVE (NEGATIVE); URINE PROTEIN NEGATIVE (NEGATIVE)
[2017-09-04] MEDS: chlordiazePOXIDE HCL 25 MG CAPSULE PO SCH ×4 (05:38→22:25)
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
[2017-09-04] MEDS ORDERED: METHADONE HCL 10 MG TABLET (FOR DETOX USE ONLY) PO SCH (10:00)
--- NOTE | 2017-09-04 10:13 | PN ---
S CIWA - CIWA Score Nausea/Vomitin-Mild Nausea/No Vomiting Muscle Tremors: 4-Moderate,w/Arms Extend Anxiety: 3 Agitation: 3 Paroxysmal Sweats: 1-Minimal Palms Moist Orientation: 0-Oriented Tacttile Disturbances: 0-None Auditory Disturbances: 0-None Visual Disturbances: 0-None Headache: 0-None Present CIWA-Ar Total Score: 12 [facility] COWS - Scale Resting Pulse: 0= [place] 80 or Below Sweatin= Chills/Flushing Restless Observation: 1= Difficult to Sit Still Pupil Size: 0= Normal to Room Light Bone or Joint Aches: 2= Severe Diffuse Aches Runny Nose/ Eye Tearin= Nasal Congestion GI Upset > 30mins: 2= Nausea/Diarrhea Tremor Observation of Outstretched Hands: 2= Slight Tremor Visible Yawning Observation: 2= >3x During Session Anxiety or Irritability: 2=Irritable/Anxious Goose Flesh Skin: 0=Smooth Skin COWS Score: 13 S Progress Note (SOAP) Subjective: sweat tremor joint pain bod ache anxiety restlessness trouble sleep at night loose stool Objective: 09/04/17 10:22 Vital Signs Temperature 97.7 F 09/04/17 10:19 Pulse Rate 62 09/04/17 10:19 Respiratory Rate 18 09/04/17 10:19 Blood Pressure 121/72 09/04/17 10:19 O2 Sat by Pulse Oximetry (%) Laboratory Last Values Urine Color Yellow 09/03/17 23:20 Urine Appearance Slcloudy 09/03/17 23:20 Urine pH 5.0 (5.0-8.0) 09/03/17 23:20 Ur Specific [place] 1.019 (1.001-1.035) 09/03/17 23:20 Urine Protein Negative (NEGATIVE) 09/03/17 23:20 Urine Glucose (UA) Negative (NEGATIVE) 09/03/17 23:20 Urine Ketones Negative (NEGATIVE) 09/03/17 23:20 Urine Blood Negative (NEGATIVE) 09/03/17 23:20 Urine Nitrite Negative (NEGATIVE) 09/03/17 23:20 Urine Bilirubin Negative (<2.0 mg/dL) 09/03/17 23:20 Urine Urobilinogen 2.0 mg/dL (0.2-1.0) 09/03/17 23:20 Ur Leukocyte Esterase Negative (NEGATIVE) 09/03/17 23:20 lab noted Assessment: 09/04/17 10:22 withdrawal sx Plan: continue detox
[2017-09-04 11:01] LABS: HEMOGLOBIN 12.6 GM/dL (11.7-16.9)
[2017-09-04 11:03] LABS: HEMATOCRIT 36.4 % (35.4-49); MCH 32.2 pg (25.7-33.7); MCHC 34.8 g/dl (32.0-35.9); MEAN CELL VOLUME 92.7 fl (80-96); MEAN PLT VOLUME 9.6 fl (7.5-11.1); PLATELET COUNT 158 K/MM3 (134-434); RBC 3.92 M/mm3 (4.00-5.60); RDW 13.7 % (11.9-15.9); WHITE BLOOD COUNT 6.3 K/mm3 (4.0-10.0)
[2017-09-04] MEDS: PRENATAL VITAMINS W/ FOLIC ACID TABLET (FP) PO SCH (11:15)
[2017-09-04] MEDS: NICOTINE 14 MG/24 HOURS TOPICAL PATCH TD SCH (11:16)
--- NOTE | 2017-09-04 12:02 | EKG ---
Test Reason : Blood Pressure : / mmHG Vent. Rate : 062 BPM Atrial Rate : 062 BPM P-R Int : 162 ms QRS Dur : 100 ms QT Int : 440 ms P-R-T Axes : 073 065 064 degrees QTc Int : 446 ms NORMAL SINUS RHYTHM NORMAL ECG WHEN COMPARED WITH ECG OF 27-FEB-2017 22:53, NO SIGNIFICANT CHANGE WAS FOUND Confirmed by BRAD VASQUEZ MD ([id number]) on 09/04/2017 12:01:55 PM Referred By: Confirmed By:BRAD VASQUEZ MD
[2017-09-04 12:05] LABS: ANION GAP 11 (8-16); BLOOD UREA NITROGEN 16 mg/dL (7-18); CALCIUM 8.5 mg/dL (8.5-10.1); CHLORIDE 105 mmol/L (98-107); CO2 26 mmol/L (21-32); GLUCOSE,RANDOM 145 mg/dL (74-106); POTASSIUM 3.3 mmol/L (3.5-5.1); SODIUM 142 mmol/L (136-145)
[2017-09-04 12:12] LABS: ALBUMIN 3.5 g/dl (3.4-5.0); ALK PHOS 81 U/L (45-117); BILIRUBIN,TOTAL 1.7 mg/dL (0.2-1.0); CREATININE 1.3 mg/dL (0.7-1.3); SGOT/AST 29 U/L (15-37); SGPT/ALT 26 U/L (12-78); TOT PROT 6.2 g/dl (6.4-8.2)
[2017-09-04] MEDS: THIAMINE HCL 100 MG TABLET (FP) PO SCH (22:25)
[2017-09-05] MEDS: IBUPROFEN 400 MG TABLET (FP) PO PRN (05:24)
[2017-09-05] MEDS: chlordiazePOXIDE HCL 25 MG CAPSULE PO SCH ×3 (05:24→17:45)
[2017-09-05] MEDS: METHADONE HCL 5 MG TABLET (FOR DETOX USE ONLY) PO SCH (10:37)
[2017-09-05] MEDS: PRENATAL VITAMINS W/ FOLIC ACID TABLET (FP) PO SCH (10:37)
[2017-09-05] MEDS: NICOTINE 14 MG/24 HOURS TOPICAL PATCH TD SCH (10:38)
--- NOTE | 2017-09-05 11:54 | PN ---
[facility] CIWA - CIWA Score Nausea/Vomitin-Mild Nausea/No Vomiting Muscle Tremors: 3 Anxiety: 3 Agitation: 2 Paroxysmal Sweats: 1-Minimal Palms Moist Orientation: 0-Oriented Tacttile Disturbances: 1-Very Mild Itch/Numbness Auditory Disturbances: 0-None Visual Disturbances: 0-None Headache: 0-None Present CIWA-Ar Total Score: 11 [facility] COWS - Scale Resting Pulse: 0= NC 80 or Below Sweatin= Chills/Flushing Restless Observation: 1= Difficult to Sit Still Pupil Size: 0= Normal to Room Light Bone or Joint Aches: 1= Mild Discomfort Runny Nose/ Eye Tearin= Nasal Congestion GI Upset > 30mins: 2= Nausea/Diarrhea Tremor Observation of Outstretched Hands: 2= Slight Tremor Visible Yawning Observation: 2= >3x During Session Anxiety or Irritability: 2=Irritable/Anxious Goose Flesh Skin: 0=Smooth Skin COWS Score: 12 [facility] Progress Note (SOAP) Subjective: sweat tremor body ache joint pain anxiety restlessness Objective: 09/05/17 11:53 Vital Signs Temperature 97.9 F 09/05/17 09:51 Pulse Rate 85 09/05/17 09:51 Respiratory Rate 20 09/05/17 09:51 Blood Pressure 126/85 09/05/17 09:51 O2 Sat by Pulse Oximetry (%) Laboratory Last Values WBC 6.3 K/mm3 (4.0-10.0) 09/04/17 07:00 RBC 3.92 M/mm3 (4.00-5.60) L 09/04/17 07:00 Hgb 12.6 GM/dL (11.7-16.9) 09/04/17 07:00 Hct 36.4 % (35.4-49) 09/04/17 07:00 MCV 92.7 fl (80-96) 09/04/17 07:00 MCH 32.2 pg (25.7-33.7) 09/04/17 07:00 MCHC 34.8 g/dl (32.0-35.9) 09/04/17 07:00 RDW 13.7 % (11.9-15.9) 09/04/17 07:00 Plt Count 158 K/MM3 (134-434) 09/04/17 07:00 MPV 9.6 fl (7.5-11.1) 09/04/17 07:00 Sodium 142 mmol/L (136-145) 09/04/17 07:00 Potassium 3.3 mmol/L (3.5-5.1) L D 09/04/17 07:00 Chloride 105 mmol/L (98-107) 09/04/17 07:00 Carbon Dioxide 26 mmol/L (21-32) 09/04/17 07:00 Anion Gap 11 (8-16) 09/04/17 07:00 BUN 16 mg/dL (7-18) D 09/04/17 07:00 Creatinine 1.3 mg/dL (0.7-1.3) 09/04/17 07:00 Creat Clearance w eGFR 57.75 (>60) 09/04/17 07:00 Random Glucose 145 mg/dL (74-106) H D 09/04/17 07:00 Calcium 8.5 mg/dL (8.5-10.1) 09/04/17 07:00 Total Bilirubin 1.7 mg/dL (0.2-1.0) H D 09/04/17 07:00 AST 29 U/L (15-37) D 09/04/17 07:00 ALT 26 U/L (12-78) 09/04/17 07:00 Alkaline Phosphatase 81 U/L (45-117) D 09/04/17 07:00 Total Protein 6.2 g/dl (6.4-8.2) L 09/04/17 07:00 Albumin 3.5 g/dl (3.4-5.0) 09/04/17 07:00 Urine Color Yellow 09/03/17 23:20 Urine Appearance Slcloudy 09/03/17 23:20 Urine pH 5.0 (5.0-8.0) 09/03/17 23:20 Ur Specific [place] 1.019 (1.001-1.035) 09/03/17 23:20 Urine Protein Negative (NEGATIVE) 09/03/17 23:20 Urine Glucose (UA) Negative (NEGATIVE) 09/03/17 23:20 Urine Ketones Negative (NEGATIVE) 09/03/17 23:20 Urine Blood Negative (NEGATIVE) 09/03/17 23:20 Urine Nitrite Negative (NEGATIVE) 09/03/17 23:20 Urine Bilirubin Negative (<2.0 mg/dL) 09/03/17 23:20 Urine Urobilinogen 2.0 mg/dL (0.2-1.0) 09/03/17 23:20 Ur Leukocyte Esterase Negative (NEGATIVE) 09/03/17 23:20 RPR Titer Nonreactive (NONREACTIVE) 09/04/17 07:00 lab noted K+ supplement Assessment: 09/05/17 11:56 withdrawal sx hypoKalemia Plan: continue detox K+ supplement repeat K+ serum
[2017-09-05] MEDS: POTASSIUM CHLORIDE ORAL LIQUID 20 MEQ/15 ML PO SCH ×2 (12:11→22:34)
[2017-09-05] MEDS: chlordiazePOXIDE 5 MG CAPSULE PO SCH (22:34)
[2017-09-05] MEDS: THIAMINE HCL 100 MG TABLET (FP) PO SCH (22:35)
[2017-09-06] MEDS: IBUPROFEN 400 MG TABLET (FP) PO PRN ×2 (02:53→23:01)
[2017-09-06] MEDS: chlordiazePOXIDE 5 MG CAPSULE PO SCH ×3 (05:42→17:21)
[2017-09-06] MEDS: PRENATAL VITAMINS W/ FOLIC ACID TABLET (FP) PO SCH (10:37)
[2017-09-06] MEDS: POTASSIUM CHLORIDE ORAL LIQUID 20 MEQ/15 ML PO SCH ×2 (10:37→23:00)
[2017-09-06] MEDS: METHADONE HCL 5 MG TABLET (FOR DETOX USE ONLY) PO SCH (10:38)
[2017-09-06] MEDS: NICOTINE 14 MG/24 HOURS TOPICAL PATCH TD SCH (10:38)
--- NOTE | 2017-09-06 20:42 | PN ---
[facility] Progress Note (SOAP) Subjective: Sleep disturbance Shakes sweats Diarrhea Objective: 09/06/17 20:41 A & O x 3 Not in acute distress Vital Signs Temperature 98.1 F 09/06/17 18:26 Pulse Rate 67 09/06/17 18:26 Respiratory Rate 18 09/06/17 18:26 Blood Pressure 116/61 09/06/17 18:26 O2 Sat by Pulse Oximetry (%) Assessment: 09/06/17 20:42 withdrawal sx Plan: continue detox
[2017-09-06] MEDS: THIAMINE HCL 100 MG TABLET (FP) PO SCH (23:00)
[2017-09-06] MEDS: chlordiazePOXIDE HCL 10 MG CAPSULE PO SCH (23:01)
[2017-09-07] MEDS: chlordiazePOXIDE HCL 10 MG CAPSULE PO SCH ×3 (05:34→17:09)
[2017-09-07] MEDS ORDERED: METHADONE HCL 10 MG TABLET (FOR DETOX USE ONLY) PO SCH (10:00)
[2017-09-07] MEDS: PRENATAL VITAMINS W/ FOLIC ACID TABLET (FP) PO SCH (10:29)
[2017-09-07] MEDS: NICOTINE 14 MG/24 HOURS TOPICAL PATCH TD SCH (10:29)
--- NOTE | 2017-09-07 12:05 | PN ---
[facility] Progress Note (SOAP) Subjective: irritable Objective: 09/07/17 12:04 Vital Signs Temperature 97.7 F 09/07/17 10:22 Pulse Rate 80 09/07/17 10:22 Respiratory Rate 18 09/07/17 10:22 Blood Pressure 109/55 09/07/17 10:22 O2 Sat by Pulse Oximetry (%) aaox3 ambulating no acute distress Assessment: 09/07/17 12:05 withdrawal sx Plan: continue detox increase fluids d/c in am
[2017-09-07] MEDS: IBUPROFEN 400 MG TABLET (FP) PO PRN (17:09)
[2017-09-07] MEDS: THIAMINE HCL 100 MG TABLET (FP) PO SCH (22:17)
[2017-09-07 23:14] VITALS: TEMP 97.3
[2017-09-08] MEDS: IBUPROFEN 400 MG TABLET (FP) PO PRN (05:19)
[2017-09-08] MEDS ORDERED: METHADONE HCL 5 MG TABLET (FOR DETOX USE ONLY) PO SCH (06:00)
[2017-09-08 06:28] VITALS: BP 113/77; PULSE 87
--- NOTE | 2017-09-08 10:22 | DS ---
[facility] Detox Discharge Summary Admission Date: 09/03/17 Discharge Date: 09/08/17 - History Present History: Alcohol Dependence, Opioid Dependence Additional Comments: 52 years old male admitted 09/03/17 for alcohol and opioid withdrawal sx completed detox regimen tolerated well denies alcohol and opioid withdrawal sx alert oriented x 3 no acute distress wants aftercare at [facility] brief motivational intervention x 5" patient wants to remain sober through recovery process - Physical Exam Results Vital Signs: Vital Signs Temperature 97.3 F L 09/08/17 06:27 Pulse Rate 87 09/08/17 06:27 Respiratory Rate 18 09/08/17 06:27 Blood Pressure 113/77 09/08/17 06:27 O2 Sat by Pulse Oximetry (%) Pertinent Admission Physical Exam Findings: withdrawal sx Vital Signs Temperature 97.3 F L 09/08/17 06:27 Pulse Rate 87 09/08/17 06:27 Respiratory Rate 18 09/08/17 06:27 Blood Pressure 113/77 09/08/17 06:27 O2 Sat by Pulse Oximetry (%) Laboratory Last Values WBC 6.3 K/mm3 (4.0-10.0) 09/04/17 07:00 RBC 3.92 M/mm3 (4.00-5.60) L 09/04/17 07:00 Hgb 12.6 GM/dL (11.7-16.9) 09/04/17 07:00 Hct 36.4 % (35.4-49) 09/04/17 07:00 MCV 92.7 fl (80-96) 09/04/17 07:00 MCH 32.2 pg (25.7-33.7) 09/04/17 07:00 MCHC 34.8 g/dl (32.0-35.9) 09/04/17 07:00 RDW 13.7 % (11.9-15.9) 09/04/17 07:00 Plt Count 158 K/MM3 (134-434) 09/04/17 07:00 MPV 9.6 fl (7.5-11.1) 09/04/17 07:00 Sodium 142 mmol/L (136-145) 09/04/17 07:00 Potassium 4.1 mmol/L (3.5-5.1) D 09/07/17 08:00 Chloride 105 mmol/L (98-107) 09/04/17 07:00 Carbon Dioxide 26 mmol/L (21-32) 09/04/17 07:00 Anion Gap 11 (8-16) 09/04/17 07:00 BUN 16 mg/dL (7-18) D 09/04/17 07:00 Creatinine 1.3 mg/dL (0.7-1.3) 09/04/17 07:00 Creat Clearance w eGFR 57.75 (>60) 09/04/17 07:00 Random Glucose 145 mg/dL (74-106) H D 09/04/17 07:00 Calcium 8.5 mg/dL (8.5-10.1) 09/04/17 07:00 Total Bilirubin 1.7 mg/dL (0.2-1.0) H D 09/04/17 07:00 AST 29 U/L (15-37) D 09/04/17 07:00 ALT 26 U/L (12-78) 09/04/17 07:00 Alkaline Phosphatase 81 U/L (45-117) D 09/04/17 07:00 Total Protein 6.2 g/dl (6.4-8.2) L 09/04/17 07:00 Albumin 3.5 g/dl (3.4-5.0) 09/04/17 07:00 Urine Color Yellow 09/03/17 23:20 Urine Appearance Slcloudy 09/03/17 23:20 Urine pH 5.0 (5.0-8.0) 09/03/17 23:20 Ur Specific [place] 1.019 (1.001-1.035) 09/03/17 23:20 Urine Protein Negative (NEGATIVE) 09/03/17 23:20 Urine Glucose (UA) Negative (NEGATIVE) 09/03/17 23:20 Urine Ketones Negative (NEGATIVE) 09/03/17 23:20 Urine Blood Negative (NEGATIVE) 09/03/17 23:20 Urine Nitrite Negative (NEGATIVE) 09/03/17 23:20 Urine Bilirubin Negative (<2.0 mg/dL) 09/03/17 23:20 Urine Urobilinogen 2.0 mg/dL (0.2-1.0) 09/03/17 23:20 Ur Leukocyte Esterase Negative (NEGATIVE) 09/03/17 23:20 RPR Titer Nonreactive (NONREACTIVE) 09/04/17 07:00 lab noted - Treatment Hospital Course: Detox Protocol Followed, Detoxed Safely, Responded well, Discharged Condition Good, Rehab Referral Accepted Patient has Accepted a Rehab Referral to: [facility] - Medication Discharge Medications: Ambulatory Orders NK [No Known Home Medication] 09/03/17 - Diagnosis (1) Alcohol dependence with uncomplicated withdrawal Current Visit: Yes Status: Acute (2) Opioid dependence, uncomplicated Current Visit: Yes Status: Acute (3) GERD (gastroesophageal reflux disease) Current Visit: Yes Status: Chronic Qualifiers: Esophagitis presence: without esophagitis Qualified Code(s): K21.9 - Gastro -esophageal reflux disease without esophagitis (4) Nicotine dependence Current Visit: Yes Status: Acute Qualifiers: Nicotine product type: cigarettes Substance use status: in withdrawal Qualified Code(s): F17.213 - Nicotine dependence, cigarettes, with withdrawal (5) Substance-induced anxiety disorder Current Visit: Yes Status: Suspected (6) Weight loss Current Visit: Yes Status: Acute - AMA Did Patient Leave Against Medical Advice: No
== END 2017-09-08 10:00 | disposition home or self-care (01) | DRG 773 ==
LOC: YASAS 14:01 → Y6N 18:54
PROVIDERS: ADMIT Surgery; ATTEND Surgery
PROC: HZ2ZZZZ Detoxification Services for Substance Abuse Treatment (ICD-10-PCS; principal; 2017-09-03)
DX: F11.23 Opioid dependence with withdrawal (principal); F10.230 Alcohol dependence with withdrawal, uncomplicated; F17.213 Nicotine dependence, cigarettes, with withdrawal; F19.280 Other psychoactive substance dependence with psychoactive substance-induced anxiety disorder; F19.282 Other psychoactive substance dependence with psychoactive substance-induced sleep disorder; K21.9 Gastro-esophageal reflux disease without esophagitis; R63.4 Abnormal weight loss; Z68.21 Body mass index [BMI] 21.0-21.9, adult; F41.9 Anxiety disorder, unspecified; Z91.5 Personal history of self-harm
CPT/HCPCS: 36415; 80053; 81003; 84132; 85027; 86593; 93005; 93010

== ENCOUNTER 2019-11-07 16:46 | Inpatient (IN) | payer OTHER ==
[2019-11-07 18:27] VITALS: BMI 21.8
--- NOTE | 2019-11-07 19:15 | BHS.RME ---
Substance Use & Tx History - Substance Use History Heroin Substance amount: heroin 2 bags Frequency of use: Daily Substance route: Inhalation (ex: sniffing or snorting) Date of Last Use: 11/07/19 Alcohol Substance amount: 1 pint of vodka/6 packs of 16 ozs of beer Frequency of use: Daily Substance route: Oral Date of Last Use: 11/07/19 - Last Treatment Date of last treatment: [facility] 03/09 Where was last treatment: Detox Physical/Psych/Mental Status - Behavior General Behavior: Increased activity (restlessness, agitation) Other Behaviors: Mannerisms - Cooperativeness Cooperativeness: Cooperative - Thinking Thought Processes: Logical Thought content: Future oriented - Physical Health Problems Is patient presently having any pain?: No Does patient presently have any injuries (include location): No Does patient currently have a fever: No COWS - Scale Resting Pulse: 1= SD 81-100 Sweatin= Chills/Flushing Restless Observation: 1= Difficult to Sit Still Pupil Size: 1= Pupils >than Normal Bone or Joint Aches: 2= Severe Diffuse Aches Runny Nose/ Eye Tearin= Runny Nose/Eyes GI Upset > 30mins: 2= Nausea/Diarrhea Tremor Observation: 2= Slight Tremor Visible Yawning Observation: 2= >3x During Session Anxiety or Irritability: 2=Irritable/Anxious Goose Flesh Skin: 0=Smooth Skin COWS Score: 16 CIWA Nausea/Vomitin Muscle Tremors: 2 Anxiety: 3 Agitation: 3 Paroxysmal Sweats: 1-Minimal Palms Moist Orientation: 0-Oriented Tacttile Disturbances: 1-Very Mild Itch/Numbness Auditory Disturbances: 0-None Visual Disturbances: 0-None Headache: 2-Mild CIWA-Ar Total Score: 14
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
[2019-11-07] MEDS ORDERED: chlordiazePOXIDE HCL 25 MG CAPSULE PO PRN (19:41)
[2019-11-07] MEDS ORDERED: METHADONE HCL 10 MG TABLET (FOR DETOX USE ONLY) PO ONE (19:41)
[2019-11-07] MEDS ORDERED: cloNIDine HCL 0.1 MG TABLET PO PRN (19:41)
[2019-11-07] MEDS ORDERED: ACETAMINOPHEN 325 MG TABLET (FP) PO PRN (19:42)
[2019-11-07] MEDS ORDERED: BISMUTH SUBSALICYLATE 524 MG/30 ML UD PO PRN (19:42)
[2019-11-07] MEDS ORDERED: MAGNESIUM HYDROX 2400MG/30ML ORAL SUSPENSION 30 ML CUP PO PRN (19:42)
[2019-11-07] MEDS ORDERED: NICOTINE POLACRILEX 2 MG GUM BUC PRN (19:42)
[2019-11-07] MEDS ORDERED: ONDANSETRON *ODT* 4 MG TABLET SL ONE (19:42)
[2019-11-07] MEDS ORDERED: MAGNESIUM CITRATE 300 ML BOTTLE PO PRN (19:42)
[2019-11-07] MEDS ORDERED: MENTHOL/PHENOL 1 EACH UD MM PRN (19:42)
[2019-11-07] MEDS ORDERED: MAG HYDROX/AL HYDROX/SIMETH 30 ML UNIT-DOSE CUP PO PRN (19:42)
[2019-11-07] MEDS ORDERED: TUBERCULIN PPD 5 TU/0.1ML VIAL ID ONE (21:10)
[2019-11-07] MEDS: THIAMINE HCL 100 MG TABLET (FP) PO SCH (21:12)
[2019-11-07] MEDS: MELATONIN 5 MG TABLETS PO SCH (21:12)
[2019-11-07] MEDS: hydrOXYzine PAMOATE 25 MG CAPSULE (FP) PO SCH (21:12)
[2019-11-07] MEDS: IBUPROFEN 400 MG TABLET (FP) PO PRN (21:14)
[2019-11-07] MEDS: chlordiazePOXIDE HCL 25 MG CAPSULE PO SCH (22:16)
[2019-11-08] MEDS: chlordiazePOXIDE HCL 25 MG CAPSULE PO SCH ×4 (06:36→22:17)
[2019-11-08] MEDS: IBUPROFEN 400 MG TABLET (FP) PO PRN (06:37)
[2019-11-08] MEDS: hydrOXYzine PAMOATE 25 MG CAPSULE (FP) PO SCH ×5 (06:37→22:17)
[2019-11-08] MEDS: METHOCARBAMOL 500 MG TABLET PO PRN ×2 (06:37→18:11)
[2019-11-08] MEDS ORDERED: METHADONE HCL 10 MG TABLET (FOR DETOX USE ONLY) ONE (08:53)
[2019-11-08] MEDS ORDERED: METHADONE HCL 5 MG TABLET (FOR DETOX USE ONLY) ONE (08:53)
[2019-11-08] MEDS ORDERED: METHADONE (DETOX) 20 MG, METHADONE (DETOX) 5 MG PO ONE (10:00)
[2019-11-08 10:16] LABS: HEMATOCRIT 37.4 % (35.4-49); MCH 30.5 pg (25.7-33.7); MCHC 32.2 g/dl (32.0-35.9); MEAN CELL VOLUME 94.9 fl (80-96); MEAN PLT VOLUME 9.6 fl (7.5-11.1); PLATELET COUNT 165 K/MM3 (134-434); RBC 3.94 M/mm3 (4.00-5.60); RDW 13.8 % (11.9-15.9); WHITE BLOOD COUNT 13.7 K/mm3 (4.0-10.0)
--- NOTE | 2019-11-08 10:24 | PN ---
[facility] CIWA - CIWA Score Nausea/Vomitin-No Nausea/No Vomiting Anxiety: 4-Mod. Anxious/Guarded Paroxysmal Sweats: No Perspiration Orientation: 0-Oriented Tacttile Disturbances: 0-None Auditory Disturbances: 0-None Visual Disturbances: 0-None Headache: 0-None Present [facility] Progress Note (SOAP) Subjective: Pt is a 54 y/o male admitted to detox for heroin and alcohol withdrawal sx. On Meth/Mari detox taperregimen. c/o nasal congestion/runny nose coughing/yellow-green phlegm(not shown to staff) with right side chest discomfort and sob since yesterday anxiety Denies nausea/vomiting or diarrhea denies fever, sorethroat or headache Objective: 11/08/19 10:46 Vital Signs - 24 hr 11/07/19 11/07/19 11/07/19 18:25 20:11 21:00 Temperature 98.1 F 98.1 F 97.8 F Pulse Rate 99 H 99 H 94 H Respiratory 18 18 18 Rate Blood Pressure 124/73 124/73 135/72 O2 Sat by Pulse Oximetry (%) 11/08/19 06:29 Temperature 98.2 F Pulse Rate 80 Respiratory 18 Rate Blood Pressure 121/68 O2 Sat by Pulse 96 Oximetry (%) Laboratory Tests 11/08/19 11/08/19 08:15 08:15 WBC 13.7 H RBC 3.94 L Hgb 12.0 Hct 37.4 MCV 94.9 MCH 30.5 MCHC 32.2 RDW 13.8 Plt Count 165 MPV 9.6 Sodium 135 L Potassium 3.3 L Chloride 100 Carbon Dioxide 24 Anion Gap 11 BUN 11.8 Creatinine 1.1 Est GFR (CKD-EPI)AfAm 87.13 Est GFR (CKD-EPI)NonAf 75.17 Random Glucose 223 H Calcium 8.5 Total Bilirubin 1.2 H AST 27 ALT 25 Alkaline Phosphatase 65 Total Protein 6.0 L Albumin 3.0 L EKG:Sinus rythm with premature atrial complex incomplete right bundle branch block Borderline ECG Change from EKG of 09/03/17-NSR, Normal ECG covid-19 result pending K+ 3.3 Glc 223 mg/dl Alert o x 3,oob ambulating with steady gait cardiac:s1 s2, rrr lungs:congested, diminished breath sounds, slight rhonchi left >right lungs; no use of accessory muscles abdomen:soft extremities:no edema, skin intact. 11/08/19 11:40 Assessment: 11/08/19 10:46 withdrawal sx Plan: cont detox increase po fluids maintain safety kdur 20 meq po bid, 1st dose now. protonix 40 mg po daily, 1st dose now EKG today(last EKG in 2018) to do CXR today r/o pneumonia Informed Pt may transfer to [facility] if symptoms persist or worsen. Pt not receptive at this time. At 12:00 noon, saw pt who does not want to be disturbed at this time. Reports he ate his hamburger for lunch well and wants to rest.
[2019-11-08 10:29] LABS: BILIRUBIN,TOTAL 1.2 mg/dL (0.2-1); BLOOD UREA NITROGEN 11.8 mg/dL (7-18); CALCIUM 8.5 mg/dL (8.5-10.1); CREATININE 1.1 mg/dL (0.55-1.3); POTASSIUM 3.3 mmol/L (3.5-5.1)
--- NOTE | 2019-11-08 10:42 | CONSULT ---
[facility] Psychiatric Consult - Data Date of interview: 11/08/19 Admission source: [facility] Identifying data: Revisit to [facility] and admission to [address] [place] [address] (now converted into a detoxification service) for this 54 y/o AA male who presented to [facility] with opioid + ETOH withdrawal. Patient is single, father of three, homeless, unemployed and supported on SSD benefits. Substance Abuse History: Discussed with the patient. RAMIRO profile as follows : Smoking history: Current every day smoker. Have you smoked in the past 12 months: Yes. Aproximately how many cigarettes per day: 20. Cigars Per Day: 0. Hx Chewing Tobacco Use: No. Initiated information on smoking cessation: Yes. 'Breaking Loose' booklet given: 11/07/19. - Substance & Tx. History. Hx Alcohol Use: Yes. Hx Substance Use: Yes. Substance Use Type: Alcohol, Heroin. Hx Substance Use Treatment: Yes ([facility] 03/09). - Substances abused. Heroin. Substance route: Inhalation. Frequency: Daily. Amount used: 20 bags. Age of first use: 18. Date of last use: 11/06/19. Alcohol. Frequency: Daily. Amount used: 6 packs of 16 ozs of beer. Age of first use: 18. Date of last use: 11/06/19. Crack. Substance route: Smoking. Frequency: Daily. Amount used: 80$. Age of first use: 18. Date of last use: 11/06/19 Medical History: Medical profile is remarkable for arthritis (right knee) and history of surgeries (right Achilles tendon, right knee surgery and bilateral inguinal herniorraphy). Psychiatric History: In this interview, the patient denies history of psychiatric hospitalizations, OPD care or suicide attempts. However, records ([facility]) indicate prior psychiatric follow-up in 2012 for depression (no recall of medications used) and one suicide attempt via overdose with medications (1989). Physical/Sexual Abuse/Trauma History: Not discussed. Patient declines. Additional Comment: Urine drug screen results: FEN-Fentanyl, MOP-Opiates. Noted. Mental Status Exam - Mental Status Exam Alert and Oriented to: Time, Place, Person Cognitive Function: Good Patient Appearance: Well Groomed Mood: Withdrawn, Irritable Affect: Mood Congruent, Constricted Patient Behavior: Fatigued, Cooperative (marginally cooperative) Speech Pattern: Clear Voice Loudness: Normal Thought Process: Intact, Goal Oriented Thought Disorder: Not Present Hallucinations: Denies Suicidal Ideation: Denies Homicidal Ideation: Denies Insight/Judgement: Poor Sleep: Poorly, Difficulty falling asleep (wants seroquel) Appetite: Good Gait/Station: Other (not observed; did not get out of bed for the interview) Psychiatric Findings - Problem List ([place] 1, 2,3) (1) Alcohol dependence with uncomplicated withdrawal Current Visit: Yes Status: Acute (2) Opioid dependence with withdrawal Current Visit: Yes Status: Acute (3) Nicotine dependence Current Visit: Yes Status: Chronic Qualifiers: Nicotine product type: cigarettes Substance use status: in withdrawal Qualified Code(s): F17.213 - Nicotine dependence, cigarettes, with withdrawal (4) Substance induced mood disorder Current Visit: Yes Status: Chronic (5) Insomnia Current Visit: Yes Status: Chronic - Initial Treatment Plan Initial Treatment Plan: Psychoeducation. Support. Sleep hygiene. Detoxification in progress. Seroquel 50 mg po hs. ordered at patient's request. Side effects/benefits discussed with patient. Consent (verbal) given. Observation.
[2019-11-08] MEDS: NICOTINE 21 MG/24 HOURS TOPICAL PATCH TD SCH (10:56)
[2019-11-08] MEDS: PRENATAL VITAMINS W/ FOLIC ACID TABLET (FP) PO SCH (10:56)
[2019-11-08] MEDS: PANTOPRAZOLE 40 MG TABLET PO SCH (11:15)
[2019-11-08] MEDS ORDERED: POTASSIUM CHLORIDE TABS 20 MEQ TABLET.ER (FP) PO ONE (11:30)
--- NOTE | 2019-11-08 12:28 | EKG ---
Test Reason : Blood Pressure : / mmHG Vent. Rate : 072 BPM Atrial Rate : 072 BPM P-R Int : 154 ms QRS Dur : 100 ms QT Int : 428 ms P-R-T Axes : 060 057 064 degrees QTc Int : 468 ms SINUS RHYTHM WITH PREMATURE ATRIAL COMPLEXES INCOMPLETE RIGHT BUNDLE BRANCH BLOCK BORDERLINE ECG WHEN COMPARED WITH ECG OF 03-SEP-2017 22:40, PREMATURE ATRIAL COMPLEXES ARE NOW PRESENT INCOMPLETE RIGHT BUNDLE BRANCH BLOCK IS NOW PRESENT Confirmed by Eben Campbell ([id number]) on 11/08/2019 12:28:12 PM Referred By: BRIANNA MAYA Confirmed By:Eben Campbell
--- NOTE | 2019-11-08 16:12 | PN ---
S Progress Note Note: CXR done and pt has just returned to the unit from XRay dept. Spoke to Dr. Ashish Agosto, JANENE who will follow up with pt's xray result this evening.
--- NOTE | 2019-11-08 17:18 | PN ---
Progress Note (short form) - Note Progress Note: CXR reviewed. Developing right base infiltrate. Also WBC 13.7. In light of patient's symptoms, will start Cefpodoxime 200 BID and Doxy 100 BID. QTc 468, will not use azithro as patient already on methadone and this is known to prolong QTc.
[2019-11-08] MEDS ORDERED: DOXYCYCLINE HYCLATE 100 MG CAPSULE PO SCH (18:00)
[2019-11-08] MEDS: POTASSIUM CHLORIDE TABS 20 MEQ TABLET.ER (FP) PO SCH (18:12)
[2019-11-08] MEDS: MELATONIN 5 MG TABLETS PO SCH (22:16)
[2019-11-08] MEDS: THIAMINE HCL 100 MG TABLET (FP) PO SCH (22:17)
[2019-11-08] MEDS: QUEtiapine FUMARATE 50 MG TABLET PO SCH (22:59)
[2019-11-08] MEDS: CEFPODOXIME PROXETIL 200 MG TABLET [NF] PO SCH (22:59)
[2019-11-09] MEDS: chlordiazePOXIDE HCL 25 MG CAPSULE PO SCH ×4 (06:21→22:02)
[2019-11-09] MEDS: hydrOXYzine PAMOATE 25 MG CAPSULE (FP) PO SCH ×5 (06:22→22:01)
[2019-11-09] MEDS: POTASSIUM CHLORIDE TABS 20 MEQ TABLET.ER (FP) PO SCH ×2 (06:22→17:04)
--- NOTE | 2019-11-09 09:02 | PN ---
[facility] CIWA - CIWA Score Nausea/Vomitin-No Nausea/No Vomiting Muscle Tremors: 1-None Visible, but [place] Anxiety: 4-Mod. Anxious/Guarded Agitation: 3 Paroxysmal Sweats: 1-Minimal Palms Moist Orientation: 0-Oriented Tacttile Disturbances: 0-None Auditory Disturbances: 0-None Visual Disturbances: 0-None Headache: 0-None Present CIWA-Ar Total Score: 9 BHS COWS - Scale Resting Pulse: 1= [place] 81-100 Sweatin= No chills or Flushing Restless Observation: 0= Sits Still Pupil Size: 0= Normal to Room Light Bone or Joint Aches: 4=Acute Joint/Muscle Pain Runny Nose/ Eye Tearin= Runny Nose/Eyes GI Upset > 30mins: 0= None Tremor Observation of Outstretched Hands: 1= Tremor [place], Not Seen Yawning Observation: 0= None Anxiety or Irritability: 2=Irritable/Anxious Goose Flesh Skin: 0=Smooth Skin COWS Score: 10 [facility] Progress Note (SOAP) Subjective: C/o:Body aches Cough right rib area pain on coughing anxiety fatigue Objective: 11/09/19 11:56 Vital Signs - 24 hr 11/08/19 11/08/19 11/09/19 12:59 21:36 06:10 Temperature 98.4 F 100.4 F H 98.4 F Pulse Rate 80 112 H 85 Respiratory 16 16 18 Rate Blood Pressure 119/65 139/71 117/66 O2 Sat by Pulse 95 96 96 Oximetry (%) 11/09/19 09:30 Temperature 98.4 F Pulse Rate 98 H Respiratory 20 Rate Blood Pressure 101/61 O2 Sat by Pulse 96 Oximetry (%) Laboratory Tests 11/08/19 11/08/19 11/08/19 08:15 08:15 08:15 WBC 13.7 H RBC 3.94 L Hgb 12.0 Hct 37.4 MCV 94.9 MCH 30.5 MCHC 32.2 RDW 13.8 Plt Count 165 MPV 9.6 Sodium 135 L Potassium 3.3 L Chloride 100 Carbon Dioxide 24 Anion Gap 11 BUN 11.8 Creatinine 1.1 Est GFR (CKD-EPI)AfAm 87.13 Est GFR (CKD-EPI)NonAf 75.17 Random Glucose 223 H Calcium 8.5 Total Bilirubin 1.2 H AST 27 ALT 25 Alkaline Phosphatase 65 Total Protein 6.0 L Albumin 3.0 L Syphilis Serology Non-reactive 11/09/19 07:50 WBC 11.0 H RBC 4.01 Hgb 12.4 Hct 37.5 MCV 93.6 MCH 31.0 MCHC 33.1 RDW 13.7 Plt Count 172 MPV 10.1 Sodium Potassium Chloride Carbon Dioxide Anion Gap BUN Creatinine Est GFR (CKD-EPI)AfAm Est GFR (CKD-EPI)NonAf Random Glucose Calcium Total Bilirubin AST ALT Alkaline Phosphatase Total Protein Albumin Syphilis Serology Assessment: 11/09/19 12:00 withdrawal sx
[2019-11-09] MEDS ORDERED: METHADONE HCL 10 MG TABLET (FOR DETOX USE ONLY) PO ONE (10:00)
[2019-11-09 10:14] LABS: HEMATOCRIT 37.5 % (35.4-49); HEMOGLOBIN 12.4 GM/dL (11.7-16.9); MCHC 33.1 g/dl (32.0-35.9); MEAN CELL VOLUME 93.6 fl (80-96); MEAN PLT VOLUME 10.1 fl (7.5-11.1); PLATELET COUNT 172 K/MM3 (134-434); RBC 4.01 M/mm3 (4.00-5.60); RDW 13.7 % (11.9-15.9)
[2019-11-09] MEDS: PRENATAL VITAMINS W/ FOLIC ACID TABLET (FP) PO SCH (10:21)
[2019-11-09] MEDS: PANTOPRAZOLE 40 MG TABLET PO SCH (10:21)
[2019-11-09] MEDS: CEFPODOXIME PROXETIL 200 MG TABLET [NF] PO SCH ×2 (10:21→22:02)
[2019-11-09] MEDS: NICOTINE 21 MG/24 HOURS TOPICAL PATCH TD SCH (10:21)
[2019-11-09] MEDS: DOXYCYCLINE HYCLATE 100 MG TABLET PO SCH ×2 (11:12→17:04)
[2019-11-09] MEDS: IBUPROFEN 400 MG TABLET (FP) PO PRN (14:55)
[2019-11-09] MEDS: ACETAMINOPHEN 325 MG TABLET (FP) PO PRN (17:03)
[2019-11-09] MEDS: MELATONIN 5 MG TABLETS PO SCH (22:01)
[2019-11-09] MEDS: THIAMINE HCL 100 MG TABLET (FP) PO SCH (22:01)
[2019-11-09] MEDS: QUEtiapine FUMARATE 50 MG TABLET PO SCH (22:02)
[2019-11-10] MEDS ORDERED: chlordiazePOXIDE HCL 10 MG CAPSULE PO PRN
[2019-11-10] MEDS: chlordiazePOXIDE HCL 10 MG CAPSULE PO SCH ×4 (06:24→22:10)
[2019-11-10] MEDS: hydrOXYzine PAMOATE 25 MG CAPSULE (FP) PO SCH ×5 (06:24→22:10)
[2019-11-10] MEDS: POTASSIUM CHLORIDE TABS 20 MEQ TABLET.ER (FP) PO SCH ×2 (06:24→18:14)
[2019-11-10] MEDS: IBUPROFEN 400 MG TABLET (FP) PO PRN ×2 (06:25→18:15)
[2019-11-10] MEDS ORDERED: METHADONE HCL 10 MG TABLET (FOR DETOX USE ONLY) ONE (08:55)
[2019-11-10] MEDS ORDERED: METHADONE HCL 5 MG TABLET (FOR DETOX USE ONLY) ONE (08:55)
[2019-11-10] MEDS ORDERED: METHADONE (DETOX) 10 MG, METHADONE (DETOX) 5 MG PO ONE (10:00)
[2019-11-10 10:04] LABS: ALBUMIN 2.9 g/dl (3.4-5.0); BILIRUBIN,TOTAL 0.4 mg/dL (0.2-1); BLOOD UREA NITROGEN 8.3 mg/dL (7-18); CALCIUM 9.2 mg/dL (8.5-10.1); CREATININE 0.9 mg/dL (0.55-1.3); TOT PROT 6.2 g/dl (6.4-8.2)
[2019-11-10] MEDS: NICOTINE 21 MG/24 HOURS TOPICAL PATCH TD SCH (10:21)
[2019-11-10] MEDS: CEFPODOXIME PROXETIL 200 MG TABLET [NF] PO SCH ×2 (10:22→22:10)
[2019-11-10] MEDS: DOXYCYCLINE HYCLATE 100 MG TABLET PO SCH ×2 (10:22→18:14)
[2019-11-10] MEDS: PANTOPRAZOLE 40 MG TABLET PO SCH (10:22)
[2019-11-10] MEDS: PRENATAL VITAMINS W/ FOLIC ACID TABLET (FP) PO SCH (10:22)
[2019-11-10] MEDS: METHOCARBAMOL 500 MG TABLET PO PRN (10:23)
[2019-11-10] MEDS: ACETAMINOPHEN 325 MG TABLET (FP) PO PRN (10:24)
--- NOTE | 2019-11-10 12:00 | PN ---
[facility] CIWA - CIWA Score Nausea/Vomitin-No Nausea/No Vomiting Muscle Tremors: 3 Anxiety: 4-Mod. Anxious/Guarded Agitation: 2 Paroxysmal Sweats: No Perspiration Orientation: 0-Oriented Tacttile Disturbances: 0-None Auditory Disturbances: 0-None Visual Disturbances: 0-None Headache: 0-None Present CIWA-Ar Total Score: 9 S COWS - Scale Resting Pulse: 0= [place] 80 or Below Sweatin= Chills/Flushing Restless Observation: 0= Sits Still Pupil Size: 0= Normal to Room Light Bone or Joint Aches: 4=Acute Joint/Muscle Pain Runny Nose/ Eye Tearin= None GI Upset > 30mins: 0= None Tremor Observation of Outstretched Hands: 0= None Yawning Observation: 0= None Anxiety or Irritability: 1=Feels Anxious/Irritable Goose Flesh Skin: 0=Smooth Skin COWS Score: 6 S Progress Note (SOAP) Subjective: Pt was seen this morning at rounds, more comfortable/malaise resolving and reports slight intermittent cough with no pain on coughing. Reports "i'm better, just the fatigue". Slight anxiety/tremors. Objective: 11/10/19 12:00 Vital Signs - 24 hr 11/09/19 11/09/19 11/09/19 14:00 17:59 21:51 Temperature 98.4 F Pulse Rate 81 101 H 99 H Respiratory 16 18 16 Rate Blood Pressure 100/64 92/59 L 101/71 O2 Sat by Pulse 95 96 96 Oximetry (%) 11/10/19 11/10/19 05:50 09:35 Temperature 98.2 F 97.7 F Pulse Rate 73 73 Respiratory 16 16 Rate Blood Pressure 120/68 114/71 O2 Sat by Pulse 97 95 Oximetry (%) Laboratory Tests 11/07/19 11/08/19 11/08/19 23:49 08:15 08:15 WBC 13.7 H RBC 3.94 L Hgb 12.0 Hct 37.4 MCV 94.9 MCH 30.5 MCHC 32.2 RDW 13.8 Plt Count 165 MPV 9.6 Sodium Potassium Chloride Carbon Dioxide Anion Gap BUN Creatinine Est GFR (CKD-EPI)AfAm Est GFR (CKD-EPI)NonAf Random Glucose Calcium Total Bilirubin AST ALT Alkaline Phosphatase Total Protein Albumin Syphilis Serology Non-reactive COVID-19 (JOSE) Not detected 11/08/19 11/09/19 11/10/19 08:15 07:50 07:45 WBC 11.0 H RBC 4.01 Hgb 12.4 Hct 37.5 MCV 93.6 MCH 31.0 MCHC 33.1 RDW 13.7 Plt Count 172 MPV 10.1 Sodium 135 L 139 Potassium 3.3 L 4.0 Chloride 100 107 Carbon Dioxide 24 24 Anion Gap 11 8 BUN 11.8 8.3 Creatinine 1.1 0.9 Est GFR (CKD-EPI)AfAm 87.13 111.05 Est GFR (CKD-EPI)NonAf 75.17 95.81 Random Glucose 223 H 94 Calcium 8.5 9.2 Total Bilirubin 1.2 H 0.4 AST 27 32 ALT 25 38 Alkaline Phosphatase 65 68 Total Protein 6.0 L 6.2 L Albumin 3.0 L 2.9 L Syphilis Serology COVID-19 (JOSE) covid-19 not detected Repeat Glc improved to 94 mg/dl K+ 4.0-improved alert o x 3 nad oob ambulating with steady gait Assessment: 11/10/19 12:05 withdrawal sx Plan: cont detox increase po fluids maintain safety
[2019-11-10] MEDS ORDERED: guaiFENesin/D-M SUGAR-FREE/ACLHOL-FREE 118 ML BOTTLE PO PRN (15:38)
[2019-11-10] MEDS: guaiFENesin 200 MG/10 ML 10 ML UNIT-DOSE CUPS PO PRN (18:32)
[2019-11-10 19:44] LABS: PH,URINE 6.5 (5.0-8.0); URINE APPEARANCE CLEAR; URINE BILIRUBIN NEGATIVE (NEGATIVE); URINE COLOR YELLOW; URINE GLUCOSE (UA) NEGATIVE (NEGATIVE); URINE KETONE NEGATIVE (NEGATIVE); URINE LEUK ESTERASE NEGATIVE (NEGATIVE); URINE NITRITE NEGATIVE (NEGATIVE); URINE PROTEIN NEGATIVE (NEGATIVE); URINE UROBILINOGEN 0.2 mg/dL (0.2-1.0)
[2019-11-10] MEDS: THIAMINE HCL 100 MG TABLET (FP) PO SCH (22:10)
[2019-11-10] MEDS: MELATONIN 5 MG TABLETS PO SCH (22:10)
[2019-11-10] MEDS: QUEtiapine FUMARATE 50 MG TABLET PO SCH (22:10)
[2019-11-11] MEDS: guaiFENesin 200 MG/10 ML 10 ML UNIT-DOSE CUPS PO PRN ×2 (06:58→14:15)
[2019-11-11] MEDS: POTASSIUM CHLORIDE TABS 20 MEQ TABLET.ER (FP) PO SCH ×2 (06:58→17:34)
[2019-11-11] MEDS: chlordiazePOXIDE HCL 10 MG CAPSULE PO SCH ×2 (06:58→17:34)
[2019-11-11] MEDS: hydrOXYzine PAMOATE 25 MG CAPSULE (FP) PO SCH ×5 (06:58→21:25)
[2019-11-11] MEDS: IBUPROFEN 400 MG TABLET (FP) PO PRN ×3 (07:00→21:27)
[2019-11-11] MEDS ORDERED: METHADONE HCL 10 MG TABLET (FOR DETOX USE ONLY) PO ONE (10:00)
[2019-11-11] MEDS: CEFPODOXIME PROXETIL 200 MG TABLET [NF] PO SCH ×2 (10:57→21:26)
[2019-11-11] MEDS: PANTOPRAZOLE 40 MG TABLET PO SCH (10:57)
[2019-11-11] MEDS: DOXYCYCLINE HYCLATE 100 MG TABLET PO SCH ×2 (10:58→17:34)
[2019-11-11] MEDS: PRENATAL VITAMINS W/ FOLIC ACID TABLET (FP) PO SCH (10:58)
[2019-11-11] MEDS: NICOTINE 21 MG/24 HOURS TOPICAL PATCH TD SCH (10:58)
--- NOTE | 2019-11-11 12:58 | PN ---
[facility] CIWA - CIWA Score Nausea/Vomitin-No Nausea/No Vomiting Muscle Tremors: 1-None Visible, but [place] Anxiety: 3 Agitation: 0-Normal Activity Paroxysmal Sweats: No Perspiration Orientation: 0-Oriented Tacttile Disturbances: 0-None Auditory Disturbances: 0-None Visual Disturbances: 0-None Headache: 0-None Present CIWA-Ar Total Score: 4 S COWS - Scale Resting Pulse: 0= [place] 80 or Below Sweatin= No chills or [place] Restless Observation: 0= Sits Still Pupil Size: 0= Normal to Room Light Bone or Joint Aches: 1= Mild Discomfort Runny Nose/ Eye Tearin= None GI Upset > 30mins: 0= None Tremor Observation of Outstretched Hands: 1= Tremor [place], Not Seen Yawning Observation: 0= None Anxiety or Irritability: 1=Feels Anxious/Irritable Goose Flesh Skin: 0=Smooth Skin COWS Score: 3 S Progress Note (SOAP) Subjective: Pt reports detox proceeding well except slight fatigue. Objective: 11/11/19 13:03 Vital Signs - 24 hr 11/10/19 11/10/19 11/10/19 13:24 16:50 20:23 Temperature 97.7 F 97.8 F Pulse Rate 69 99 H Respiratory 18 18 Rate Blood Pressure 116/60 109/71 O2 Sat by Pulse 95 96 Oximetry (%) 11/10/19 11/11/19 21:17 05:54 Temperature 97.3 F L 97.8 F Pulse Rate 92 H 68 Respiratory 18 18 Rate Blood Pressure 98/72 138/70 O2 Sat by Pulse 96 96 Oximetry (%) Laboratory Tests 11/07/19 11/08/19 11/08/19 23:49 08:15 08:15 WBC 13.7 H RBC 3.94 L Hgb 12.0 Hct 37.4 MCV 94.9 MCH 30.5 MCHC 32.2 RDW 13.8 Plt Count 165 MPV 9.6 Sodium Potassium Chloride Carbon Dioxide Anion Gap BUN Creatinine Est GFR (CKD-EPI)AfAm Est GFR (CKD-EPI)NonAf Random Glucose Calcium Total Bilirubin AST ALT Alkaline Phosphatase Total Protein Albumin Urine Color Urine Appearance Urine pH Ur Specific [place] Urine Protein Urine Glucose (UA) Urine Ketones Urine Blood Urine Nitrite Urine Bilirubin Urine Urobilinogen Ur Leukocyte Esterase Syphilis Serology Non-reactive COVID-19 (JOSE) Not detected 11/08/19 11/09/19 11/10/19 08:15 07:50 07:45 WBC 11.0 H RBC 4.01 Hgb 12.4 Hct 37.5 MCV 93.6 MCH 31.0 MCHC 33.1 RDW 13.7 Plt Count 172 MPV 10.1 Sodium 135 L 139 Potassium 3.3 L 4.0 Chloride 100 107 Carbon Dioxide 24 24 Anion Gap 11 8 BUN 11.8 8.3 Creatinine 1.1 0.9 Est GFR (CKD-EPI)AfAm 87.13 111.05 Est GFR (CKD-EPI)NonAf 75.17 95.81 Random Glucose 223 H 94 Calcium 8.5 9.2 Total Bilirubin 1.2 H 0.4 AST 27 32 ALT 25 38 Alkaline Phosphatase 65 68 Total Protein 6.0 L 6.2 L Albumin 3.0 L 2.9 L Urine Color Urine Appearance Urine pH Ur Specific [place] Urine Protein Urine Glucose (UA) Urine Ketones Urine Blood Urine Nitrite Urine Bilirubin Urine Urobilinogen Ur Leukocyte Esterase Syphilis Serology COVID-19 (JOSE) 11/10/19 13:49 WBC RBC Hgb Hct MCV MCH MCHC RDW Plt Count MPV Sodium Potassium Chloride Carbon Dioxide Anion Gap BUN Creatinine Est GFR (CKD-EPI)AfAm Est GFR (CKD-EPI)NonAf Random Glucose Calcium Total Bilirubin AST ALT Alkaline Phosphatase Total Protein Albumin Urine Color Yellow Urine Appearance Clear Urine pH 6.5 D Ur Specific [place] 1.008 L Urine Protein Negative Urine Glucose (UA) Negative Urine Ketones Negative Urine Blood Negative Urine Nitrite Negative Urine Bilirubin Negative Urine Urobilinogen 0.2 Ur Leukocyte Esterase Negative Syphilis Serology COVID-19 (JOSE) Alert o x 3 nad oob ambulating with steady gait Assessment: 11/11/19 13:04 withdrawal sx Plan: cont detox increase po fluids maintain safety pt may d/c tomorrow if medically stable.
[2019-11-11] MEDS: QUEtiapine FUMARATE 50 MG TABLET PO SCH (21:25)
[2019-11-11] MEDS: MELATONIN 5 MG TABLETS PO SCH (21:28)
[2019-11-11] MEDS: THIAMINE HCL 100 MG TABLET (FP) PO SCH (21:29)
[2019-11-12] MEDS ORDERED: chlordiazePOXIDE HCL 10 MG CAPSULE PO ONE (05:00)
[2019-11-12] MEDS ORDERED: METHADONE HCL 5 MG TABLET (FOR DETOX USE ONLY) PO ONE (06:00)
[2019-11-12] MEDS: IBUPROFEN 400 MG TABLET (FP) PO PRN (06:15)
[2019-11-12] MEDS: POTASSIUM CHLORIDE TABS 20 MEQ TABLET.ER (FP) PO SCH (06:16)
[2019-11-12] MEDS: guaiFENesin 200 MG/10 ML 10 ML UNIT-DOSE CUPS PO PRN (06:16)
[2019-11-12] MEDS: hydrOXYzine PAMOATE 25 MG CAPSULE (FP) PO SCH ×2 (06:17→10:39)
--- NOTE | 2019-11-12 08:26 | DS ---
[facility] Detox Discharge Summary Admission Date: 11/07/19 Discharge Date: 11/12/19 - History Present History: Alcohol Dependence, Opioid Dependence Additional Comments: Pt on Doxycycline 100 mg po BID and Vantin 200 po BID x 14 days each for early infiltrates seen on imaging/symptomatic for pneumonia. To continue antibiotics treatment for next 7 days in Rehab. Pertinent Past History: S/P Right knee surgery GERD - Physical Exam Results Vital Signs: Vital Signs Temperature 97.1 F L 11/12/19 06:59 Pulse Rate 89 11/12/19 06:59 Respiratory Rate 18 11/12/19 06:59 Blood Pressure 126/70 11/12/19 06:59 O2 Sat by Pulse Oximetry (%) 98 11/12/19 06:59 Alert o x 3 nad oob ambulating with steady gait cardiac:s1 s2 rrr lungs:ctab, no pain on insp or exp. no abdomen;soft,+bs,nt,flat extremities: no edema; skin intact Pertinent Admission Physical Exam Findings: Laboratory Tests 11/07/19 11/08/19 11/08/19 23:49 08:15 08:15 WBC 13.7 H RBC 3.94 L Hgb 12.0 Hct 37.4 MCV 94.9 MCH 30.5 MCHC 32.2 RDW 13.8 Plt Count 165 MPV 9.6 Sodium Potassium Chloride Carbon Dioxide Anion Gap BUN Creatinine Est GFR (CKD-EPI)AfAm Est GFR (CKD-EPI)NonAf Random Glucose Calcium Total Bilirubin AST ALT Alkaline Phosphatase Total Protein Albumin Urine Color Urine Appearance Urine pH Ur Specific [place] Urine Protein Urine Glucose (UA) Urine Ketones Urine Blood Urine Nitrite Urine Bilirubin Urine Urobilinogen Ur Leukocyte Esterase Syphilis Serology Non-reactive COVID-19 (JOSE) Not detected 11/08/19 11/09/19 11/10/19 08:15 07:50 07:45 WBC 11.0 H RBC 4.01 Hgb 12.4 Hct 37.5 MCV 93.6 MCH 31.0 MCHC 33.1 RDW 13.7 Plt Count 172 MPV 10.1 Sodium 135 L 139 Potassium 3.3 L 4.0 Chloride 100 107 Carbon Dioxide 24 24 Anion Gap 11 8 BUN 11.8 8.3 Creatinine 1.1 0.9 Est GFR (CKD-EPI)AfAm 87.13 111.05 Est GFR (CKD-EPI)NonAf 75.17 95.81 Random Glucose 223 H 94 Calcium 8.5 9.2 Total Bilirubin 1.2 H 0.4 AST 27 32 ALT 25 38 Alkaline Phosphatase 65 68 Total Protein 6.0 L 6.2 L Albumin 3.0 L 2.9 L Urine Color Urine Appearance Urine pH Ur Specific [place] Urine Protein Urine Glucose (UA) Urine Ketones Urine Blood Urine Nitrite Urine Bilirubin Urine Urobilinogen Ur Leukocyte Esterase Syphilis Serology COVID-19 (JOSE) 11/10/19 13:49 WBC RBC Hgb Hct MCV MCH MCHC RDW Plt Count MPV Sodium Potassium Chloride Carbon Dioxide Anion Gap BUN Creatinine Est GFR (CKD-EPI)AfAm Est GFR (CKD-EPI)NonAf Random Glucose Calcium Total Bilirubin AST ALT Alkaline Phosphatase Total Protein Albumin Urine Color Yellow Urine Appearance Clear Urine pH 6.5 D Ur Specific [place] 1.008 L Urine Protein Negative Urine Glucose (UA) Negative Urine Ketones Negative Urine Blood Negative Urine Nitrite Negative Urine Bilirubin Negative Urine Urobilinogen 0.2 Ur Leukocyte Esterase Negative Syphilis Serology COVID-19 ([facility]) - Treatment Hospital Course: Detox Protocol Followed, Detoxed Safely, Responded well, Discharged Condition Good, Rehab Referral Accepted Patient has Accepted a Rehab Referral to: [facility] - Medication Discharge Medications: Ambulatory Orders Pantoprazole Sodium [Protonix -] 40 mg PO DAILY 11/12/19 Quetiapine Fumarate [Seroquel -] 50 mg PO HS 11/12/19 - Diagnosis (1) Infiltrate noted on imaging study Status: Acute (2) Alcohol dependence with uncomplicated withdrawal Status: Acute (3) Opioid dependence with withdrawal Status: Acute (4) Weight loss Status: Acute (5) GERD (gastroesophageal reflux disease) Status: Chronic Qualifiers: Esophagitis presence: without esophagitis Qualified Code(s): K21.9 - Gastro-esophageal reflux disease without esophagitis (6) Nicotine dependence Status: Acute Qualifiers: Nicotine product type: cigarettes Substance use status: in withdrawal Qualified Code(s): F17.213 - Nicotine dependence, cigarettes, with withdrawal - AMA Did Patient Leave Against Medical Advice: No
[2019-11-12] MEDS: PANTOPRAZOLE 40 MG TABLET PO SCH (10:39)
[2019-11-12] MEDS: DOXYCYCLINE HYCLATE 100 MG TABLET PO SCH (10:39)
[2019-11-12] MEDS: PRENATAL VITAMINS W/ FOLIC ACID TABLET (FP) PO SCH (10:40)
[2019-11-12] MEDS: NICOTINE 21 MG/24 HOURS TOPICAL PATCH TD SCH (10:40)
[2019-11-12] MEDS: CEFPODOXIME PROXETIL 200 MG TABLET [NF] PO SCH (10:40)
[2019-11-12 12:33] VITALS: BP 106/56; PULSE 78; TEMP 97.3
== END 2019-11-12 12:27 | disposition other institution (70) | DRG 773 ==
LOC: YASAS 16:46 → Y5N DETOX 20:08
PROVIDERS: ADMIT Allergy & Immunology; ATTEND Allergy & Immunology
PROC: HZ2ZZZZ Detoxification Services for Substance Abuse Treatment (ICD-10-PCS; principal; 2019-11-07)
DX: F11.23 Opioid dependence with withdrawal (principal); F10.230 Alcohol dependence with withdrawal, uncomplicated; F14.20 Cocaine dependence, uncomplicated; F17.210 Nicotine dependence, cigarettes, uncomplicated; F19.24 Other psychoactive substance dependence with psychoactive substance-induced mood disorder; F41.8 Other specified anxiety disorders; F32.9 Major depressive disorder, single episode, unspecified; G47.00 Insomnia, unspecified; K21.9 Gastro-esophageal reflux disease without esophagitis; M17.11 Unilateral primary osteoarthritis, right knee; R93.89 Abnormal findings on diagnostic imaging of other specified body structures; R63.4 Abnormal weight loss; Z68.21 Body mass index [BMI] 21.0-21.9, adult; Z87.01 Personal history of pneumonia (recurrent); Z79.2 Long term (current) use of antibiotics; Z56.0 Unemployment, unspecified; Z59.0 Homelessness; Z98.890 Other specified postprocedural states; Z91.5 Personal history of self-harm
CPT/HCPCS: 36415; 71046-TC-FY; 80053; 81003; 85027; 86780; 93005; 93010; U0003

== ENCOUNTER 2019-11-12 11:24 | Inpatient (IN) | payer OTHER ==
--- NOTE | 2019-11-12 13:55 | HP ---
[facility] Rehab Assess/Revision - Admission History Date of Admission to Rehab: 11/12/2019 - Vital signs Vital Signs: Vital Signs Period Temp Pulse Resp BP Sys/Mar Pulse Ox Last 24 Hr 97.8 F 89 20 115/74 98 - Findings Detox History & Physical reviewed: Yes Concur with findings: Yes Inpatient Rehab Admission - Rehab Decision to Admit Inpatient rehab admission?: Yes - Initial Determination Are CD services needed?: Yes Free of communicable disease: Yes Not in need of hospitalization: Yes - Rehab Admission Criteria Previous failed treatment: Yes Poor recovery environment: Yes Comorbidities: Yes Lacks judgement: No Patient is meeting Inpatient Rehab admission criteria:: Yes
[2019-11-12] MEDS ORDERED: MAGNESIUM CITRATE 300 ML BOTTLE PO PRN (13:57)
[2019-11-12] MEDS ORDERED: MAGNESIUM HYDROX 2400MG/30ML ORAL SUSPENSION 30 ML CUP PO PRN (13:57)
[2019-11-12] MEDS ORDERED: MENTHOL/PHENOL 1 EACH UD MM PRN (13:57)
[2019-11-12] MEDS ORDERED: P-EPHED 60MG/TRIPROLIDI 2.5MG TABLET PO PRN (13:57)
[2019-11-12] MEDS ORDERED: ACETAMINOPHEN 325 MG TABLET (FP) PO PRN (13:57)
[2019-11-12] MEDS ORDERED: NICOTINE POLACRILEX 2 MG GUM BUC PRN (13:57)
[2019-11-12] MEDS: IBUPROFEN 400 MG TABLET (FP) PO PRN ×2 (16:47→22:36)
[2019-11-12] MEDS ORDERED: PT OWN MED DRAWER 7, Y5N ONE ×2 (16:53→21:09)
[2019-11-12] MEDS: DOXYCYCLINE HYCLATE 100 MG TABLET PO SCH (17:39)
[2019-11-12] MEDS: THIAMINE HCL 100 MG TABLET (FP) PO SCH (21:08)
[2019-11-12] MEDS: MELATONIN 5 MG TABLETS PO SCH (21:08)
[2019-11-12] MEDS: CEFPODOXIME PROXETIL 200 MG TABLET [NF] PO SCH (21:10)
[2019-11-12] MEDS ORDERED: CEFPODOXIME PROXETIL 100 MG TABLET PO SCH (22:00)
[2019-11-13] MEDS: guaiFENesin 200 MG/10 ML 10 ML UNIT-DOSE CUPS PO PRN ×2 (07:45→21:25)
[2019-11-13] MEDS: IBUPROFEN 400 MG TABLET (FP) PO PRN ×2 (07:45→17:38)
[2019-11-13] MEDS ORDERED: PT OWN MED DRAWER 7, Y5N ONE ×4 (08:26→22:21)
[2019-11-13] MEDS: PRENATAL VITAMINS W/ FOLIC ACID TABLET (FP) PO SCH (09:57)
[2019-11-13] MEDS: NICOTINE 21 MG/24 HOURS TOPICAL PATCH TD SCH (09:57)
[2019-11-13] MEDS: DOXYCYCLINE HYCLATE 100 MG TABLET PO SCH ×2 (09:57→17:33)
[2019-11-13] MEDS: CEFPODOXIME PROXETIL 200 MG TABLET [NF] PO SCH ×2 (09:57→21:23)
[2019-11-13] MEDS: MAG HYDROX/AL HYDROX/SIMETH 30 ML UNIT-DOSE CUP PO PRN (10:00)
--- NOTE | 2019-11-13 13:35 | CONSULT ---
[facility] Psychiatric Consult - Data Date of interview: 11/13/19
[2019-11-13] MEDS: THIAMINE HCL 100 MG TABLET (FP) PO SCH (21:23)
[2019-11-13] MEDS: MELATONIN 5 MG TABLETS PO SCH (21:23)
[2019-11-13] MEDS: QUEtiapine FUMARATE 50 MG TABLET PO SCH (21:23)
[2019-11-14] MEDS: guaiFENesin 200 MG/10 ML 10 ML UNIT-DOSE CUPS PO PRN (06:25)
[2019-11-14] MEDS: IBUPROFEN 400 MG TABLET (FP) PO PRN ×2 (06:25→14:49)
[2019-11-14] MEDS ORDERED: PT OWN MED DRAWER 7, Y5N ONE ×3 (08:32→19:55)
[2019-11-14] MEDS: PRENATAL VITAMINS W/ FOLIC ACID TABLET (FP) PO SCH (09:42)
[2019-11-14] MEDS: NICOTINE 21 MG/24 HOURS TOPICAL PATCH TD SCH (09:42)
[2019-11-14] MEDS: CEFPODOXIME PROXETIL 200 MG TABLET [NF] PO SCH ×2 (09:42→21:17)
[2019-11-14] MEDS: DOXYCYCLINE HYCLATE 100 MG TABLET PO SCH ×2 (09:42→17:06)
[2019-11-14] MEDS: LOPERAMIDE HCL 2 MG CAPSULE PO PRN (17:06)
[2019-11-14] MEDS: THIAMINE HCL 100 MG TABLET (FP) PO SCH (21:18)
[2019-11-14] MEDS: QUEtiapine FUMARATE 50 MG TABLET PO SCH (21:18)
[2019-11-14] MEDS: MELATONIN 5 MG TABLETS PO SCH (21:18)
[2019-11-15] MEDS: IBUPROFEN 400 MG TABLET (FP) PO PRN ×2 (01:53→09:18)
[2019-11-15] MEDS: PRENATAL VITAMINS W/ FOLIC ACID TABLET (FP) PO SCH (09:17)
[2019-11-15] MEDS: NICOTINE 21 MG/24 HOURS TOPICAL PATCH TD SCH (09:18)
[2019-11-15] MEDS: CEFPODOXIME PROXETIL 200 MG TABLET [NF] PO SCH (10:20)
[2019-11-15] MEDS: DOXYCYCLINE HYCLATE 100 MG TABLET PO SCH (10:20)
[2019-11-15] MEDS ORDERED: PT OWN MED DRAWER 7, Y5N ONE (10:28)
--- NOTE | 2019-11-15 13:05 | PN ---
[facility] Progress Note Note: Patient c/o dizziness over the weekend which he states started happening after starting antibiotics. Patient has received 5-10 day course of Doxycycline and Vantin for early RLL pneumonia. Patient denies chest pain, sob and fever/chills. States he felt weak yesterday but denies falls. Also has c/o LBP, non- radiating, described as dull ache. Vital Signs Temperature 97.1 F L 11/15/19 07:10 Pulse Rate 65 11/15/19 07:10 Respiratory Rate 16 11/15/19 07:10 Blood Pressure 125/72 11/15/19 07:10 O2 Sat by Pulse Oximetry (%) 97 11/15/19 07:10 PE alert and oriented x 3 skin warm and dry in nad CN 1-X11 grossly intact ext full rom, amb ad parisa no tremors A/P: Dizziness-resolved at this time. Etiology unsure if medication related. However, patient has received approximately 7 days of treatment with guidelines 5-10 days. Patient afebrile and denies any pulmonary complaints. Will therefore, d/c treatment and monitor clinically. Will treat LBP with Lidocaine Patch daily
[2019-11-15] MEDS: guaiFENesin 200 MG/10 ML 10 ML UNIT-DOSE CUPS PO PRN ×2 (14:39→21:03)
[2019-11-15] MEDS: THIAMINE HCL 100 MG TABLET (FP) PO SCH (21:01)
[2019-11-15] MEDS: MELATONIN 5 MG TABLETS PO SCH (21:01)
[2019-11-15] MEDS: hydrOXYzine PAMOATE 25 MG CAPSULE (FP) PO PRN (21:02)
[2019-11-15] MEDS: QUEtiapine FUMARATE 50 MG TABLET PO SCH (21:02)
[2019-11-15] MEDS: LIDOCAINE PATCH REMOVAL MC SCH (21:03)
[2019-11-16] MEDS: IBUPROFEN 400 MG TABLET (FP) PO PRN ×2 (06:52→13:31)
[2019-11-16] MEDS: LIDOCAINE 5% TOPICAL PATCH TP SCH (09:38)
[2019-11-16] MEDS: PRENATAL VITAMINS W/ FOLIC ACID TABLET (FP) PO SCH (09:38)
[2019-11-16] MEDS: NICOTINE 21 MG/24 HOURS TOPICAL PATCH TD SCH (09:38)
[2019-11-16] MEDS: LOPERAMIDE HCL 2 MG CAPSULE PO PRN (11:03)
--- NOTE | 2019-11-16 13:29 | CONSULT ---
[facility] Psychiatric Consult - Data Date of interview: 11/16/19 Admission source: Transfer from [address] [place] [address]. Identifying data: Patient was admitted to [address] on 09/13/[address] [place] [address] (after completion of detoxification treatment). Rehabilitation has been uneventful except for complaint of refractory insomnia. Refer to my note of 09/08/19 for details about demographics. Substance Abuse History: Rediscussed with the patient. RAMIRO profile as follows : Smoking history: Current every day smoker. Have you smoked in the past 12 months: Yes. Aproximately how many cigarettes per day: 20. Cigars Per Day: 0. Hx Chewing Tobacco Use: No. Initiated information on smoking cessation: Yes. 'Breaking Loose' booklet given: 11/07/19. - Substance & Tx. History. Hx Alcohol Use: Yes. Hx Substance Use: Yes. Substance Use Type: Alcohol, Heroin. Hx Substance Use Treatment: Yes ([facility] 03/09). - Substances abused. Heroin. Substance route: Inhalation. Frequency: Daily. Amount used: 20 bags. Age of first use: 18. Date of last use: 11/06/19. Alcohol. Frequency: Daily. Amount used: 6 packs of 16 ozs of beer. Age of first use: 18. Date of last use: 11/06/19. Crack. Substance route: Smoking. Frequency: Daily. Amount used: 80$. Age of first use: 18. Date of last use: 11/06/19 Medical History: Medical profile is remarkable for arthritis (right knee) and history of surgeries (right Achilles tendon, right knee surgery and bilateral inguinal herniorraphy). Psychiatric History: Patient denies history of psychiatric hospitalizations, OPD care or suicide attempts. However, records ([facility]) indicate prior psychiatric follow-up in 2012 for depression (no recall of medications used) and one suicide attempt via overdose with medications (1989). Physical/Sexual Abuse/Trauma History: Patient denies history of abuse. Additional Comment: Urine drug screen results: FEN-Fentanyl, MOP-Opiates. Noted. Mental Status Exam - Mental Status Exam Alert and Oriented to: Time, Place, Person Cognitive Function: Good Patient Appearance: Well Groomed Mood: Hopeful Affect: Appropriate, Normal Range Patient Behavior: Fatigued, Appropriate, Cooperative Speech Pattern: Clear, Appropriate Voice Loudness: Normal Thought Process: Intact, Goal Oriented Thought Disorder: Not Present Hallucinations: Denies Suicidal Ideation: Denies Homicidal Ideation: Denies Insight/Judgement: Fair Sleep: Poorly, Difficulty falling asleep Appetite: Good Gait/Station: Normal Psychiatric Findings - Problem List ([place] 1, 2,3) (1) Alcohol dependence Current Visit: Yes Status: Chronic (2) Opioid dependence Current Visit: Yes Status: Chronic (3) Nicotine dependence Current Visit: Yes Status: Chronic Qualifiers: Nicotine product type: cigarettes Substance use status: in withdrawal Qualified Code(s): F17.213 - Nicotine dependence, cigarettes, with withdrawal (4) Substance induced mood disorder Current Visit: Yes Status: Chronic (5) Insomnia Current Visit: Yes Status: Chronic - Initial Treatment Plan Initial Treatment Plan: Psychoeducation. Sleep hygiene. Support. Motivational counseling. Seroquel is raised to 100 mg po hs (with patient's informed consent). Observation.
[2019-11-16] MEDS: hydrOXYzine PAMOATE 25 MG CAPSULE (FP) PO PRN (21:06)
[2019-11-16] MEDS: MELATONIN 5 MG TABLETS PO SCH (21:06)
[2019-11-16] MEDS: THIAMINE HCL 100 MG TABLET (FP) PO SCH (21:06)
[2019-11-16] MEDS: METHYL SALICYLATE/MENTHOL OINT 30 GM TUBE TP SCH (21:07)
[2019-11-16] MEDS: LIDOCAINE PATCH REMOVAL MC SCH (21:07)
[2019-11-16] MEDS: QUEtiapine FUMARATE 100 MG TABLET (FP) PO SCH (21:08)
[2019-11-17] MEDS: IBUPROFEN 400 MG TABLET (FP) PO PRN ×2 (06:27→13:56)
[2019-11-17] MEDS: LIDOCAINE 5% TOPICAL PATCH TP SCH (09:22)
[2019-11-17] MEDS: NICOTINE 21 MG/24 HOURS TOPICAL PATCH TD SCH (09:22)
[2019-11-17] MEDS: PRENATAL VITAMINS W/ FOLIC ACID TABLET (FP) PO SCH (09:23)
[2019-11-17] MEDS ORDERED: PT OWN MED DRAWER 7, Y5N ONE (13:56)
[2019-11-17] MEDS: hydrOXYzine PAMOATE 25 MG CAPSULE (FP) PO PRN (21:10)
[2019-11-17] MEDS: MELATONIN 5 MG TABLETS PO SCH (21:10)
[2019-11-17] MEDS: QUEtiapine FUMARATE 100 MG TABLET (FP) PO SCH (21:10)
[2019-11-17] MEDS: THIAMINE HCL 100 MG TABLET (FP) PO SCH (21:10)
[2019-11-17] MEDS: METHYL SALICYLATE/MENTHOL OINT 30 GM TUBE TP SCH (21:11)
[2019-11-17] MEDS: LIDOCAINE PATCH REMOVAL MC SCH (21:11)
[2019-11-18] MEDS: IBUPROFEN 400 MG TABLET (FP) PO PRN ×2 (06:18→21:17)
[2019-11-18] MEDS: LIDOCAINE 5% TOPICAL PATCH TP SCH (09:56)
[2019-11-18] MEDS: NICOTINE 21 MG/24 HOURS TOPICAL PATCH TD SCH (09:56)
[2019-11-18] MEDS: PRENATAL VITAMINS W/ FOLIC ACID TABLET (FP) PO SCH (09:56)
--- NOTE | 2019-11-18 14:38 | PN ---
[facility] Progress Note Note: Patient is scheduled for discharge tomorrow. Script for 30 days supply of Seroquel 100 mg/hs shyam be electronically transmitted to [facility], [address] [place] [id number]
[2019-11-18] MEDS: THIAMINE HCL 100 MG TABLET (FP) PO SCH (21:16)
[2019-11-18] MEDS: MELATONIN 5 MG TABLETS PO SCH (21:16)
[2019-11-18] MEDS: QUEtiapine FUMARATE 100 MG TABLET (FP) PO SCH (21:16)
[2019-11-18] MEDS: hydrOXYzine PAMOATE 25 MG CAPSULE (FP) PO PRN (21:16)
[2019-11-18] MEDS: LIDOCAINE PATCH REMOVAL MC SCH (21:18)
[2019-11-18] MEDS: METHYL SALICYLATE/MENTHOL OINT 30 GM TUBE TP SCH (21:18)
[2019-11-19] MEDS: MAG HYDROX/AL HYDROX/SIMETH 30 ML UNIT-DOSE CUP PO PRN (02:44)
[2019-11-19 07:02] VITALS: BP 118/87; PULSE 97; TEMP 98.7
[2019-11-19] MEDS ORDERED: PT OWN MED DRAWER 7, Y5N ONE (08:26)
--- NOTE | 2019-11-19 08:55 | DS ---
[facility] Rehab Discharge Summary - [facility] Rehab Discharge Summary Admission Date: 11/12/19 Discharge Date: 11/19/19 - History Present History: Alcohol dependence, Opioid dependence - Discharge Physical Exam Vital Signs: Vital Signs Temperature 98.7 F 11/19/19 06:05 Pulse Rate 97 H 11/19/19 06:05 Respiratory Rate 16 11/19/19 06:05 Blood Pressure 118/87 11/19/19 06:05 O2 Sat by Pulse Oximetry (%) 96 11/19/19 06:05 Ambulatory Orders Pantoprazole Sodium [Protonix -] 40 mg PO DAILY #14 tab 11/18/19 Quetiapine Fumarate [Seroquel -] 100 mg PO HS #30 tablet 11/18/19 ROS: PATIENT DENIES SHAKES, SWEATING, HEADACHES AND OPIOD/ALCOHOL CRAVINGS PE: ALERT AND ORIENTED X 3 SKIN WARM AND DRY IN NAD EXT FULL ROM, AMB AD KERRI NO TREMORS DENIES SI/HI A/P: OPIOD/ETOH DEPENDENCE GERD PATIENT MEDICALLY STABLE FOR D/C AFTERCARE ARRANGED FOR [facility] OTP - Treatment Discharge Condition: Discharge condition good Hospital Course: PATIENT COMPLETED REHAB TODAY FOR ALCOHOL/OPIOD DEPENDENCE. HE IS MEDICALLY STABLE AT THIS TIME AND DENIES SI/HI. DURING COURSE OF TREATMENT, PATIENT ATTENDED GROUP MEETINGS, 1:1 SESSIONS WITH COUNSELOR AND EVALUATED AND TREATED BY PSYCH TEAM. PATIENT IS MOTIVATED TO MAINTAIN SOBRIETY AND MEDICALLY ADVISED TO FOLLOW UP WITH PCP AND OTP PROGRAM RECOMMENDED. - Medication Discharge Medications: Ambulatory Orders Pantoprazole Sodium [Protonix -] 40 mg PO DAILY #14 tab 11/18/19 Quetiapine Fumarate [Seroquel -] 100 mg PO HS #30 tablet 11/18/19 - Medication-Assisted Treatment (MAT) Medication-Assisted Treatment (MAT): No - Discharge Instructions Diet, activity, other medical instructions: Diet: REG TOLERATED Activity: TANYA AD KERRI Other medical instructions: F/U WITH PCP RECOMMENDED - Follow-up Referral Minutes to complete discharge: 40 - AMA Did Patient Leave Against Medical Advice: No
[2019-11-19] MEDS: LIDOCAINE 5% TOPICAL PATCH TP SCH (09:05)
[2019-11-19] MEDS: NICOTINE 21 MG/24 HOURS TOPICAL PATCH TD SCH (09:06)
[2019-11-19] MEDS: PRENATAL VITAMINS W/ FOLIC ACID TABLET (FP) PO SCH (09:06)
== END 2019-11-19 09:43 | disposition home or self-care (01) | DRG 772 ==
LOC: YASAS 11:24 → Y3E 11:28
PROVIDERS: ADMIT Allergy & Immunology; ATTEND Allergy & Immunology
PROC: HZ42ZZZ Group Counseling for Substance Abuse Treatment, Cognitive-Behavioral (ICD-10-PCS; principal; 2019-11-12)
DX: F11.20 Opioid dependence, uncomplicated (principal); F10.20 Alcohol dependence, uncomplicated; F17.210 Nicotine dependence, cigarettes, uncomplicated; F19.24 Other psychoactive substance dependence with psychoactive substance-induced mood disorder; M17.11 Unilateral primary osteoarthritis, right knee; G47.00 Insomnia, unspecified; M54.5 Low back pain; Z59.0 Homelessness